=== PATIENT | female | born 1940 | race Caucasian/White ===

== ENCOUNTER 2020-08-16 11:21 | Outpatient (REF) | payer MEDICARE, OTHER, SELFPAY ==
--- NOTE | ~2020-08-16 | XR_ITS ---
EXAMINATION: XR CHEST CLINICAL INFORMATION: Cough COMPARISON: None TECHNIQUE: PA and lateral views of the chest was obtained. FINDINGS: Mild diffuse interstitial prominence which appears chronic. No focal consolidation, pulmonary edema, or pleural effusion. Normal cardiomediastinal silhouette. XR/XR chest 1V IMPRESSION: Probable mild chronic interstitial lung disease. No acute cardiopulmonary findings.
[2020-08-16 14:11] LABS: Glucose Urine UA NEG (NEG); Leukocyte Esterase Urine NEG (NEG); Nitrite Urine NEG (NEG); Specific Gravity - Urine 1.015 (1.005-1.025); Urine Blood NEG (NEG); Urine Ketones NEG (NEG); Urine Protein NEG (NEG-TRACE)
[2020-08-16 14:26] LABS: Appearance Urine CLEAR; Color Urine YELLOW
[2020-08-16 14:32] LABS: Hematocrit 43.6 % (37-47); Mean Corpuscular HGB Conc 32.1 g/dl (31.0-35.0); Mean Corpuscular Hemoglobin 30.6 pg (27.0-33.0); Mean Corpuscular Volume 95.2 fL (80-98); Mean Platelet Volume 11.7 fL (9.4-12.3); Platelet Count 239 X10*3/uL (160-400); Red Blood Count 4.58 X10*6/uL (4.20-5.50); Red Cell Distribution Width 13.2 % (11.0-16.0)
[2020-08-16 14:39] LABS: Estimated Average Glucose 134 mg/dL; Hemoglobin A1c % 6.3 %
[2020-08-16 14:50] LABS: Alanine Aminotransferase 13 U/L (0-31); Albumin Level 4.2 g/dL (3.5-5.0); Alkaline Phosphatase 66 U/L (39-117); Anion Gap 15 (12-20); Aspartate Amino Transferase 17 U/L (5-31); Bilirubin Total 0.6 mg/dL (0.0-1.0); Blood Urea Nitrogen 25 mg/dL (9-16); Calcium 9.8 mg/dL (8.4-10.2); Carbon Dioxide 26 mmol/L (22-29); Chloride 106 mmol/L (96-108); Estimated Glomerular Filt Rate > 60; Glucose Random 111 mg/dL (60-115); Potassium 4.9 mmol/L (3.3-5.1); Sodium 142 mmol/L (135-145); Total Protein 7.5 g/dL (6.5-8.0)
== END 2020-08-16 11:22 | disposition home or self-care (01) ==
LOC: HO.HMGCX 11:21
PROVIDERS: PCP Internal Medicine; Visit Provider Internal Medicine
DX: R10.11 Right upper quadrant pain (principal); R05 Cough; E11.9 Type 2 diabetes mellitus without complications
CPT/HCPCS: 36415; 71045; 80053; 81003; 83036; 85027

== ENCOUNTER 2020-08-22 08:09 | Outpatient (REF) | payer MEDICARE, OTHER, SELFPAY ==
--- NOTE | ~2020-08-22 | US_ITS ---
EXAMINATION: US ABDOMEN COMPLETE CLINICAL INFORMATION: Right upper quadrant pain. COMPARISON: None. TECHNIQUE: Real-time imaging of the abdominal viscera. Technically difficult study secondary to bowel gas and body habitus. FINDINGS: PANCREAS: Normal. ABDOMINAL AORTA: There is mild atherosclerotic calcification distal abdominal aorta. The aorta is otherwise normal in caliber. INFERIOR VENA CAVA: Visualized portions are normal. LIVER: Liver is normal size The liver contour is normal. There is diffuse hepatic echogenicity. No focal hepatic lesion. There is no intrahepatic biliary duct dilatation seen. GALLBLADDER: The gallbladder is physiologically distended. Multiple impacted mobile gallstones are present. There is an impacted gallstone in the neck of the gallbladder measuring 0.6 x 0.6 x 0.6 cm. There are echogenic calcifications in the wall with gallbladder wall thickness measuring 0.19 cm. No evidence of gallbladder wall thickening or pericholecystic fluid. COMMON BILE DUCT: Normal in caliber measuring 0.3 cm in diameter. RIGHT KIDNEY: There is an anechoic cyst in the upper pole measuring 1.6 x 1.7 x 2.1 cm. In addition, there are multiple peripelvic cysts. No hydronephrosis or renal calculi. The kidney measures 10.7 cm in maximum dimension. LEFT KIDNEY: There is an upper pole cyst measuring 2.0 x 1.1 x 1.4 cm. There are multiple peripelvic cysts seen as well. No hydronephrosis or renal calculi. The kidney measures 10.5 cm in maximum dimension. SPLEEN: Normal. The spleen measures 8.3 cm in maximum dimension. FREE FLUID: None. US/US abdomen complete IMPRESSION: Multiple bilateral peripelvic cysts and cortical cysts, largest in both upper poles as described above. No echogenic stones or hydronephrosis. Cholelithiasis without wall thickening. There are echogenic calcifications in the gallbladder wall. Hepatic steatosis without focal lesion.
== END 2020-08-22 08:10 | disposition home or self-care (01) ==
LOC: HO.HMGCX 08:09
PROVIDERS: Visit Provider Internal Medicine
DX: R10.11 Right upper quadrant pain (principal); E11.9 Type 2 diabetes mellitus without complications
CPT/HCPCS: 76700

== ENCOUNTER 2021-05-16 15:18 | Outpatient (REF) | payer MEDICARE, OTHER, SELFPAY ==
--- NOTE | ~2021-05-16 | US_ITS ---
EXAMINATION: US EXTRACRANIAL CAROTID DUPLEX, BILATERAL CLINICAL INFORMATION: Carotid bruits. COMPARISON: None TECHNIQUE: Real-time ultrasound and Doppler techniques (integrating B-mode 2-D vascular images, Doppler spectral analysis and color-flow Doppler imaging) were utilized to interrogate the extracranial carotid arteries, the vertebral arteries and proximal subclavian arteries bilaterally. The degree of stenosis is determined by criteria similar to NASCET. FINDINGS: Right Side: 1. There is minimal atherosclerotic plaque seen in the bifurcation/proximal ICA region. 2. The common carotid artery PSV proximally is 73 cm/s and distally 86 cm/s. 3. The proximal internal carotid artery velocities are 81 cm/s systolic and 29 cm/s diastolic. 4. The proximal external carotid artery PSV is 108 cm/s. 5. The vertebral artery shows antegrade flow. 6. The subclavian artery waveforms are normal. Left Side: 1. There is moderate atherosclerotic plaque seen in the bifurcation/proximal ICA region. 2. The common carotid artery PSV proximally is 84 cm/s and distally 81 cm/s. 3. The proximal internal carotid artery velocities are 129 cm/s systolic and 36 cm/s diastolic. 4. The proximal external carotid artery PSV is 133 cm/s. 5. The vertebral artery shows antegrade flow. 6. The subclavian artery waveforms are normal. US/US carotid duplex BI IMPRESSION: 1. RIGHT: Minimal, non-hemodynamically significant stenosis of the proximal right internal carotid artery corresponding to a 0-49% stenosis by velocity criteria. 2. LEFT: Moderate, hemodynamically significant stenosis of the proximal left internal carotid artery corresponding to a 50-79% stenosis by velocity criteria.
== END 2021-05-16 15:19 | disposition home or self-care (01) ==
LOC: HO.HMGCX 15:18
PROVIDERS: PCP Internal Medicine; Visit Provider Internal Medicine
DX: I77.9 Disorder of arteries and arterioles, unspecified (principal); R09.89 Other specified symptoms and signs involving the circulatory and respiratory systems
CPT/HCPCS: 93880

== ENCOUNTER 2021-10-27 10:17 | Outpatient (REF) | payer MEDICARE, OTHER, SELFPAY ==
[2021-10-27 11:38] LABS: MANUAL DIFF FLAG NO
[2021-10-27 11:46] LABS: Basophils Absolute Auto 0.1 X10*3/uL (0.0-0.2); Basophils Percent Auto 0.8 % (0-2); Eosinophils Absolute Auto 0.2 X10*3/uL (0.0-0.4); Hematocrit 44.3 % (37.0-47.0); Hemoglobin 14.2 g/dl (12.0-16.0); Imm Gran Abs Auto 0.02 X10*3/uL (0.00-0.03); Imm Gran Pct Auto 0.3 % (0.0-0.4); Lymphocytes Absolute Auto 2.4 X10*3/uL (1.2-4.9); Lymphocytes Percent Auto 30.3 % (20-40); Mean Corpuscular HGB Conc 32.1 g/dl (31.0-35.0); Mean Corpuscular Volume 93.5 fL (80.0-98.0); Mean Platelet Volume 11.1 fL (9.4-12.3); Monocytes Absolute Auto 0.7 X10*3/uL (0.1-1.2); Monocytes Percent Auto 8.1 % (2-11); Neutrophils Absolute Auto 4.7 x10*3/uL (2.0-8.3); Neutrophils Percent Auto 58.5 % (45-73); Platelet Count 206 X10*3/uL (160-400); Red Blood Count 4.74 X10*6/uL (4.20-5.50); Red Cell Distribution Width 13.1 % (11.0-16.0)
[2021-10-27 11:57] LABS: Estimated Average Glucose 134 mg/dL; Hemoglobin A1c % 6.3 %
[2021-10-27 12:14] LABS: Creatinine Urine 49.02 mg/dL; Microalbum/Creatinine Ratio Ur 26.5 ug/mg cr
[2021-10-27 12:15] LABS: Alanine Aminotransferase 15 U/L (0-31); Albumin Level 4.2 g/dL (3.5-5.0); Alkaline Phosphatase 61 U/L (39-117); Anion Gap 15 (12-20); Aspartate Amino Transferase 18 U/L (5-31); Bilirubin Total 0.6 mg/dL (0.0-1.0); Blood Urea Nitrogen 26 mg/dL (9-16); Calcium 9.5 mg/dL (8.4-10.2); Carbon Dioxide 27 mmol/L (22-29); Chloride 105 mmol/L (96-108); Cholesterol 198 mg/dL; Estimated Glomerular Filt Rate > 60; Glucose Fasting 120 mg/dL (60-99); HDL Cholesterol 67 mg/dL; LDL Cholesterol Calculated 116 mg/dl; Potassium 4.5 mmol/L (3.3-5.1); Sodium 142 mmol/L (135-145); Total Protein 7.5 g/dL (6.5-8.0); Triglycerides 78 mg/dL
== END 2021-10-27 10:18 | disposition home or self-care (01) ==
LOC: HO.HMGCLDS 10:17
PROVIDERS: PCP Internal Medicine; Visit Provider Internal Medicine
DX: E78.5 Hyperlipidemia, unspecified (principal); I77.9 Disorder of arteries and arterioles, unspecified; E11.9 Type 2 diabetes mellitus without complications
CPT/HCPCS: 36415; 80053; 80061; 82043; 83036; 85025

== ENCOUNTER 2022-05-04 13:20 | Outpatient (REF) | payer MEDICARE, OTHER, SELFPAY ==
--- NOTE | ~2022-05-04 | XR_ITS ---
EXAMINATION: XR CHEST CLINICAL INFORMATION: J45.909 - Unspecified asthma, uncomplicated COMPARISON: Chest radiographs 08/16/2020 TECHNIQUE: 2 views of the chest were obtained. FINDINGS: There is mild accentuated interstitial markings similar in distribution and severity to prior study. There is no lobar or segmental airspace consolidation or groundglass opacity. No pleural thickening or effusion. The heart is normal in size. The vascularity is normal. The costophrenic sulci are well-defined. The hilar and mediastinal contours and bony structures are stable. XR/XR chest 2V IMPRESSION: 1. Mild accentuated interstitial markings similar to prior exam 08/16/2020. 2. No acute intrathoracic disease.
== END 2022-05-04 13:21 | disposition home or self-care (01) ==
LOC: HO.HMGCX 13:20
PROVIDERS: PCP Internal Medicine; Visit Provider Internal Medicine
DX: J45.909 Unspecified asthma, uncomplicated (principal)
CPT/HCPCS: 71046

== ENCOUNTER 2022-05-06 10:59 | Outpatient (REF) | payer MEDICARE, OTHER, SELFPAY ==
[2022-05-06 14:34] LABS: MANUAL DIFF FLAG NO
[2022-05-06 14:51] LABS: Basophils Absolute Auto 0.1 X10*3/uL (0.0-0.2); Eosinophils Absolute Auto 0.2 X10*3/uL (0.0-0.4); Eosinophils Percent Auto 3.4 % (0-4); Hematocrit 46.3 % (37.0-47.0); Hemoglobin 14.7 g/dl (12.0-16.0); Imm Gran Abs Auto 0.01 X10*3/uL (0.00-0.03); Imm Gran Pct Auto 0.1 % (0.0-0.4); Lymphocytes Absolute Auto 2.3 X10*3/uL (1.2-4.9); Lymphocytes Percent Auto 34.3 % (20-40); Mean Corpuscular HGB Conc 31.7 g/dl (31.0-35.0); Mean Corpuscular Hemoglobin 30.8 pg (27.0-33.0); Mean Corpuscular Volume 96.9 fL (80.0-98.0); Mean Platelet Volume 11.8 fL (9.4-12.3); Monocytes Absolute Auto 0.6 X10*3/uL (0.1-1.2); Neutrophils Absolute Auto 3.5 x10*3/uL (2.0-8.3); Neutrophils Percent Auto 52.2 % (45-73); Platelet Count 228 X10*3/uL (160-400); Red Blood Count 4.78 X10*6/uL (4.20-5.50); Red Cell Distribution Width 12.9 % (11.0-16.0); White Blood Count 6.8 X10*3/uL (4.8-10.8)
[2022-05-06 15:06] LABS: Alanine Aminotransferase 21 U/L (0-31); Albumin Level 4.1 g/dL (3.5-5.0); Alkaline Phosphatase 66 U/L (39-117); Anion Gap 13 (12-20); Aspartate Amino Transferase 19 U/L (5-31); Bilirubin Total 0.7 mg/dL (0.0-1.0); Blood Urea Nitrogen 31 mg/dL (9-16); Calcium 9.5 mg/dL (8.4-10.2); Carbon Dioxide 30 mmol/L (22-29); Chloride 104 mmol/L (96-108); Cholesterol 218 mg/dL; Estimated Glomerular Filt Rate > 60; Glucose Fasting 118 mg/dL (60-99); HDL Cholesterol 67 mg/dL; LDL Cholesterol Calculated 134 mg/dl; Potassium 4.4 mmol/L (3.3-5.1); Sodium 143 mmol/L (135-145); Total Protein 7.4 g/dL (6.5-8.0); Triglycerides 86 mg/dL
[2022-05-06 15:25] LABS: Creatinine Urine 97.32 mg/dL; Microalbum/Creatinine Ratio Ur 46.2 ug/mg cr
[2022-05-06 15:31] LABS: Estimated Average Glucose 134 mg/dL; Hemoglobin A1c % 6.3 %
== END 2022-05-06 11:00 | disposition home or self-care (01) ==
LOC: HO.WFDLDS 10:59
PROVIDERS: Visit Provider Internal Medicine
DX: E11.9 Type 2 diabetes mellitus without complications (principal); J45.909 Unspecified asthma, uncomplicated; E78.5 Hyperlipidemia, unspecified
CPT/HCPCS: 36415; 80053; 80061; 82043; 83036; 85025

== ENCOUNTER 2022-11-25 13:57 | Outpatient (AMB) | payer MEDICARE, OTHER, SELFPAY ==
[2022-11-25 14:06] VITALS: BP 136/82; PULSE 89; O2SAT 96; BMI 31.2
--- NOTE | 2022-11-25 14:06 | MHC.PC.OV ---
Vital Signs 11/25/22 14:06 Height 5 ft 3 in Weight 176 lb BMI 31.2 BP 136/82 Blood Pressure Location Lt brachial Position Sitting Pulse 89 Pulse Source Pulse Oximeter Pulse Oximetry (%) 96 Oxygen Delivery Method Room Air Intake Visit Reasons: asthma Intake Note: Pt is here today for a follow up visit. Allergies No Known Allergies Allergy (Verified 11/25/22 14:08) Medication List - Last Reconciled 11/25/22 by Jaylyn Florentino MD albuterol sulfate 90 mcg/actuation 2 puffs inhalation Q6H PRN ezetimibe 10 mg PO DAILY fluticasone furoate-vilanterol 100-25 mcg/dose (Breo Ellipta) 1 inh inhalation DAILY omeprazole 20 mg PO DAILY rosuvastatin 10 mg PO BEDTIME Tobacco use date assessed: 11/25/22 Fall risk assessment: 1 Fall in past year Last assessed Fall Risk: 11/25/22 Dental Screening Dental Screen Date: 11/25/22 Did you have a dental visit in the last 12 months?: Yes Did you have a dental problem in the last 6 months where you did not have access to dental care?: No Was dental information given to patient?: Patient has dentist HPI asthma HPI Details Patient presents for the follow-up of hyperlipidemia diet controlled hyperglycemia. She follows up with inspector of weights and measures from [facility] who added Zetia to her medications 2 weeks ago. She has not had a blood work done since May. Patient has not been physically active. She denies any recurrent bronchitis shortness of breath or wheezing and has not been using inhalers PFSH Medical History (Updated 11/25/22 @ 14:56 by Jaylyn Florentino MD) Hyperlipidemia Carotid arterial disease Cholelithiasis Cough RUQ abdominal pain Urinary incontinence Type 2 diabetes mellitus Surgical History S/P ILIR-BSO History of knee replacement Family History (Updated 11/25/22 @ 14:11 by GEO Barrera) Father Diabetes Mother CHF (congestive heart failure) Maternal Grandfather Colon cancer Social History Housing: House Alcohol intake: current Alcohol intake frequency: holidays/special occasions only Patient Tobacco Use Status: Never used Tobacco e-Cigarette/Vaping Use: Never Used service: No Current occupational status: retired Cognitive needs: No Hearing needs: No Vision needs: Yes Questionnaire Thrive Questionnaire Date Thrive assessed: 05/04/22 AUDIT C Alcohol Use Questionnaire (AUDIT-C) 1. How often do you have a drink containing alcohol?: Never 3. How often do you have six or more drinks on one occasion?: Never Total Score: 0 CASI-7 AMB Questionnaire CASI-7 Date CASI - 7 assessed: 05/04/22 Source: Developed by Drs. Ace Dobbs, Fatou Fernandez, Mejia Winter and colleagues, with an educational astrid from [employer]. Review of Systems Const All systems reviewed & are unremarkable except as noted in HPI and below Reports no additional complaints Eyes Reports no additional complaints ENT Reports no additional complaints Card Reports no additional complaints Resp Reports no additional complaints GI Reports no additional complaints Reports no additional complaints Physical exam (Primary Care) Vital Signs: Last Vital Signs Pulse 89 11/25/22 14:06 BP 136/82 11/25/22 14:06 Pulse Ox 96 11/25/22 14:06 Oxygen Delivery Method Room Air 11/25/22 14:06 BMI result Body Mass Index 31.2 Tobacco/Smoking Status: Tobacco use Status Tobacco use date assessed 11/25/22 11/25/22 14:12 Patient Tobacco Use Status Never used Tobacco 11/25/22 14:12 e-Cigarette/Vaping Use Never Used 11/25/22 14:12 Thrive Assessment: Date of Thrive Assessment Date Thrive assessed 05/04/22 11/25/22 14:12 Const General: no acute distress HENMT Face and sinus: Yes normal facial exam Eyes General: appearance normal, both eyes and all related structures Neck Neck: Yes supple Resp Effort & Inspection: normal respiratory effort Auscultation: clear to auscultation bilaterally Cardio Rhythm: regular rhythm Heart sounds: S1 normal heart sound present and S2 normal heart sound present GI Inspection: Yes normal to inspection Palpation (GI): Soft to palpation Percussion: Yes normal to percussion Auscultation: normal bowel sounds Assessment and Plan Assessment & Plan (1) Hyperlipidemia: Code(s): E78.5 - Hyperlipidemia, unspecified Plan: Patient was advised to continue current medications and have a fasting blood work in 1 month. She will follow-up in 5 weeks to discuss the results (2) Type 2 diabetes mellitus: Comment: diet controlled A1C 6.3 08/2020 Code(s): E11.9 - Type 2 diabetes mellitus without complications Plan: Continue ADA diet, increase physical activity weight loss discussed with the patient, check A1c in 1 month (3) Bilateral carotid bruits: Code(s): R09.89 - Other specified symptoms and signs involving the circulatory and respiratory systems (4) Carotid arterial disease: Comment: Doppler 06/03 L moderate stenosis, R minimal stenosis, started statin Code(s): I77.9 - Disorder of arteries and arterioles, unspecified Plan: Patient is due for a repeat carotid ultrasound, to be discussed during her next visit Orders: Orders Comprehensive [place]. Panel Fast 1 Month E11.9 - Type 2 diabetes mellitus without complications, E78.5 - Hyperlipidemia, unspecified, R09.89 - Other specified symptoms and signs involving the circulatory and respiratory systems TSH reflex Free T4 1 Month E11.9 - Type 2 diabetes mellitus without complications, E78.5 - Hyperlipidemia, unspecified, R09.89 - Other specified symptoms and signs involving the circulatory and respiratory systems Microalbumin, Random (w Creat) 1 Month E11.9 - Type 2 diabetes mellitus without complications, E78.5 - Hyperlipidemia, unspecified, R09.89 - Other specified symptoms and signs involving the circulatory and respiratory systems Complete Blood Count Auto Diff 1 Month E11.9 - Type 2 diabetes mellitus without complications, E78.5 - Hyperlipidemia, unspecified, R09.89 - Other specified symptoms and signs involving the circulatory and respiratory systems Lipid Panel 1 Month E11.9 - Type 2 diabetes mellitus without complications, E78.5 - Hyperlipidemia, unspecified, R09.89 - Other specified symptoms and signs involving the circulatory and respiratory systems Hemoglobin A1c 1 Month E11.9 - Type 2 diabetes mellitus without complications, E78.5 - Hyperlipidemia, unspecified, R09.89 - Other specified symptoms and signs involving the circulatory and respiratory systems Medications: Discontinued fluticasone furoate-vilanterol 100-25 mcg/dose (Breo Ellipta) Discontinued Reason: Doctor's Order 1 inh inhalation DAILY 60 ea 0RF Coding Level of Care Code Est Pt Level 4 (02394) Diagnoses Hyperlipidemia E78.5 Type 2 diabetes mellitus E11.9 Bilateral carotid bruits R09.89 Carotid arterial disease I77.9
== END 2022-11-25 14:57 | disposition home or self-care (01) ==
PROVIDERS: PCP Internal Medicine; Visit Provider Internal Medicine
DX: E78.5 Hyperlipidemia, unspecified (principal); E11.9 Type 2 diabetes mellitus without complications; R09.89 Other specified symptoms and signs involving the circulatory and respiratory systems; I77.9 Disorder of arteries and arterioles, unspecified
CPT/HCPCS: 99214

== ENCOUNTER 2022-12-22 10:22 | Outpatient (REF) | payer MEDICARE, OTHER, SELFPAY | END 2022-12-22 10:23 | disposition home or self-care (01) | LOC: HO.WFDLDS 10:22 | PROVIDERS: Visit Provider Internal Medicine | DX: R09.89 Other specified symptoms and signs involving the circulatory and respiratory systems (principal); E11.9 Type 2 diabetes mellitus without complications; E78.5 Hyperlipidemia, unspecified | CPT/HCPCS: 36415; 80053; 80061; 82043; 82570; 83036; 84443; 85025 ==

== ENCOUNTER 2022-12-30 10:48 | Outpatient (AMB) | payer MEDICARE, OTHER, SELFPAY ==
--- NOTE | 2022-12-30 10:54 | A.OFFPC_ITS ---
Vital Signs 12/30/22 10:55 Height 5 ft 3 in Weight 176 lb BMI 31.2 BP 130/82 Blood Pressure Location Lt brachial Position Sitting Pulse 85 Pulse Source Pulse Oximeter Pulse Oximetry (%) 98 Oxygen Delivery Method Room Air Intake Visit Reasons: 5 week fu Intake Note: Pt is here today for 5 weeks follow up visit. Allergies No Known Allergies Allergy (Verified 12/30/22 10:59) Medication List - Last Reconciled 12/30/22 by Jaylyn Florentino MD albuterol sulfate 90 mcg/actuation 2 puffs inhalation Q6H PRN ezetimibe 10 mg PO DAILY omeprazole 20 mg PO DAILY rosuvastatin 10 mg PO BEDTIME Tobacco use date assessed: 11/25/22 HPI 5 week fu HPI Details Pt presnts for f/u hyperlipid and hyperglycemia, stable on meds. PFSH Medical History Hyperlipidemia Carotid arterial disease Cholelithiasis Cough RUQ abdominal pain Urinary incontinence Type 2 diabetes mellitus Surgical History S/P ILIR-BSO History of knee replacement Family History Father Diabetes Mother CHF (congestive heart failure) Maternal Grandfather Colon cancer Social History Housing: House Alcohol intake: current Alcohol intake frequency: holidays/special occasions only Patient Tobacco Use Status: Never used Tobacco e-Cigarette/Vaping Use: Never Used service: No Current occupational status: retired Cognitive needs: No Hearing needs: No Vision needs: Yes Questionnaire Thrive Questionnaire Date Thrive assessed: 05/04/22 CASI-7 AMB Questionnaire CASI-7 Date CASI - 7 assessed: 05/04/22 Source: Developed by Drs. Ace Dobbs, Fatou Fernandez, Mejia Winter and colleagues, with an educational astrid from [employer]. Review of Systems Const All systems reviewed & are unremarkable except as noted in HPI and below Reports no additional complaints Eyes Reports no additional complaints ENT Reports no additional complaints Card Reports no additional complaints Resp Reports no additional complaints GI Reports no additional complaints Physical exam (Primary Care) Vital Signs: Last Vital Signs Pulse 85 12/30/22 10:55 BP 130/82 12/30/22 10:55 Pulse Ox 98 12/30/22 10:55 Oxygen Delivery Method Room Air 12/30/22 10:55 BMI result Body Mass Index 31.2 Tobacco/Smoking Status: Tobacco use Status Tobacco use date assessed 11/25/22 12/30/22 10:55 Patient Tobacco Use Status Never used Tobacco 12/30/22 10:55 e-Cigarette/Vaping Use Never Used 12/30/22 10:55 Thrive Assessment: Date of Thrive Assessment Date Thrive assessed 05/04/22 12/30/22 10:55 Const General: no acute distress HENMT Head: Yes normal to inspection Resp Effort & Inspection: normal respiratory effort Auscultation: clear to auscultation bilaterally Cardio Rhythm: regular rhythm Heart sounds: S1 normal heart sound present and S2 normal heart sound present Assessment and Plan Assessment & Plan (1) Type 2 diabetes mellitus: Comment: diet controlled A1C 6.3 08/2021 Code(s): E11.9 - Type 2 diabetes mellitus without complications Plan: A1c is down to 6.1, continue ADA diet increase physical activity weight loss discussed with the patient. 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 Panel Fast 6 Months E11.9 - Type 2 diabetes mellitus without complications, E78.5 - Hyperlipidemia, unspecified, R03.0 - Elevated blood- pressure reading, without diagnosis of hypertension Lipid Panel 6 Months E11.9 - Type 2 diabetes mellitus without complications, E78.5 - Hyperlipidemia, unspecified, R03.0 - Elevated blood-pressure reading, without diagnosis of hypertension Hemoglobin A1c 6 Months E11.9 - Type 2 diabetes mellitus without complications, E78.5 - Hyperlipidemia, unspecified, R03.0 - Elevated blood-pressure reading, without diagnosis of hypertension Coding Level of Care Code Est Pt Level 3 (11825) Diagnoses Type 2 diabetes mellitus E11.9 Hyperlipidemia E78.5 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
[2022-12-30 10:55] VITALS: BP 130/82; PULSE 85; O2SAT 98; BMI 31.2
== END 2022-12-30 11:40 | disposition home or self-care (01) ==
PROVIDERS: PCP Internal Medicine; Visit Provider Internal Medicine
DX: E11.9 Type 2 diabetes mellitus without complications (principal); E78.5 Hyperlipidemia, unspecified; R03.0 Elevated blood-pressure reading, without diagnosis of hypertension
CPT/HCPCS: 99213

== ENCOUNTER 2023-06-24 10:55 | Outpatient (REF) | payer MEDICARE, OTHER, SELFPAY ==
[2023-06-24 15:05] LABS: Alanine Aminotransferase 21 U/L (0-31); Albumin Level 3.8 g/dL (3.5-5.0); Alkaline Phosphatase 56 U/L (39-117); Anion Gap 10 (12-20); Aspartate Amino Transferase 19 U/L (5-31); Bilirubin Total 0.5 mg/dL (0.0-1.0); Blood Urea Nitrogen 29 mg/dL (9-16); Calcium 9.3 mg/dL (8.4-10.2); Carbon Dioxide 27 mmol/L (22-29); Chloride 108 mmol/L (96-108); Cholesterol 148 mg/dL (<200); Estimated Glomerular Filt Rate > 60; Glucose Fasting 115 mg/dL (60-99); HDL Cholesterol 66 mg/dL (>40); LDL Cholesterol Calculated 67 mg/dL (<100); Potassium 4.3 mmol/L (3.3-5.1); Sodium 141 mmol/L (135-145); Total Protein 7.1 g/dL (6.5-8.0); Triglycerides 78 mg/dL (<150)
[2023-06-24 15:11] LABS: Estimated Average Glucose 146 mg/dL; Hemoglobin A1c % 6.7 % (<6.0)
== END 2023-06-24 10:56 | disposition home or self-care (01) ==
LOC: HO.WFDLDS 10:55
PROVIDERS: Visit Provider Internal Medicine
DX: E11.9 Type 2 diabetes mellitus without complications (principal); E78.5 Hyperlipidemia, unspecified; R03.0 Elevated blood-pressure reading, without diagnosis of hypertension
CPT/HCPCS: 36415; 80053; 80061; 83036

== ENCOUNTER 2023-06-29 10:19 | Outpatient (AMB) | payer MEDICARE, OTHER, SELFPAY ==
[2023-06-29 10:27] VITALS: BP 134/80; PULSE 76; O2SAT 98; BMI 31.4
--- NOTE | 2023-06-29 10:27 | A.OFFPC_ITS ---
Vital Signs 06/29/23 10:27 Height 5 ft 3 in Weight 177 lb BMI 31.4 BP 134/80 Blood Pressure Location Lt brachial Position Sitting Pulse 76 Pulse Source Pulse Oximeter Pulse Oximetry (%) 98 Oxygen Delivery Method Room Air Intake Visit Reasons: Annual PE/Overdue Intake Note: Pt is here today for PE. Allergies No Known Allergies Allergy (Verified 06/29/23 10:33) Medication List - Last Reconciled 06/29/23 by Jaylyn Florentino MD albuterol sulfate 90 mcg/actuation 2 puffs inhalation Q6H PRN ezetimibe 10 mg PO DAILY omeprazole 20 mg PO DAILY rosuvastatin 10 mg PO BEDTIME Tobacco use date assessed: 06/29/23 Fall risk assessment: No Falls in past year Last assessed Fall Risk: 06/29/23 Dental Screening Dental Screen Date: 06/29/23 Did you have a dental visit in the last 12 months?: Yes Did you have a dental problem in the last 6 months where you did not have access to dental care?: No Was dental information given to patient?: Patient has dentist HPI Annual PE/Overdue HPI Details Pt presents for PE. [facility] Medical History (Updated 06/29/23 @ 11:56 by Jaylyn Florentino MD) Hyperlipidemia Carotid arterial disease Cholelithiasis Cough RUQ abdominal pain Urinary incontinence Type 2 diabetes mellitus Surgical History S/P ILIR-BSO History of knee replacement Family History Father Diabetes Mother CHF (congestive heart failure) Maternal Grandfather Colon cancer Social History Housing: House Alcohol intake: current Alcohol intake frequency: holidays/special occasions only Patient Tobacco Use Status: Never used Tobacco e-Cigarette/Vaping Use: Never Used service: No Current occupational status: retired Cognitive needs: No Hearing needs: No Vision needs: Yes Questionnaire PHQ-9 Over the last 2 weeks, how often have you been bothered by any of the following problems? 1. Little interest or pleasure in doing things: not at all 2. Feeling down, depressed, or hopeless: not at all 3. Trouble falling or staying asleep, or sleeping too much: not at all 4. Feeling tired or having little energy: not at all 5. Poor appetite or overeating: not at all 6. Feeling bad about yourself - or that you are a failure or have let yourself or your family down: not at all 7. Trouble concentrating on things, such as reading the newspaper or watching television: not at all 8. Moving or speaking so slowly that other people could have noticed. Or the opposite - being so fidgety or restless that you have been moving around a lot more than usual: not at all 9. Thoughts that you would be better off or of hurting yourself in some way: not at all Total score: 0 Depression Screening Interpretation: Negative Depression Screening Done: Yes Source: Developed by Drs. Ace Dobbs, Fatou Fernandez, Mejia Winter and colleagues, with an educational astrid from [employer]. Thrive Questionnaire Date Thrive assessed: 06/29/23 I am a: Patient What is your living situation today?: I have a steady place to live Within the past 12 months, did the food you bought not last and you didn't have the money to get more?: Never true Within the past 12 months, did you worry whether your food would run out before you got money to buy more?: Never true Do you have trouble paying for medicines?: No Do you have trouble getting transportation to medical appointments?: No Do you have trouble paying your heating and electricity bill?: No Do you have trouble taking care of your child, family member or friend?: No Do you have trouble with day-to-day activities such as bathing, preparing meals, shopping, managing finances, etc.?: No Are you currently unemployed and looking for a job?: No Are you interested in more education?: No Please select the resources that you would like help with: None THRIVE Score: 0 AUDIT C Alcohol Use Questionnaire (AUDIT-C) 1. How often do you have a drink containing alcohol?: Monthly or less 2. How many drinks containing alcohol do you have on a typical day when you are drinking?: 1 or 2 3. How often do you have six or more drinks on one occasion?: Never Total Score: 1 CASI-7 AMB Questionnaire CASI-7 Date CASI - 7 assessed: 06/29/23 Feeling nervous, anxious, or on edge: 0 = Not at all Not being able to stop or control worryin = Not at all Worrying too much about different things: 0 = Not at all Trouble relaxin = Not at all Being so restless that it is hard to sit still: 0 = Not at all Becoming easily annoyed or irritable: 0 = Not at all Feeling afraid as if something awful might happen: 0 = Not at all Total CASI-7 score (0-4 normal; 5-9 mild; 10-14 moderate; 15-21 severe): 0 Source: Developed by Drs. Ace Dobbs, Fatou Fernandez, Mejia Winter and colleagues, with an educational astrid from [employer]. Review of Systems Const All systems reviewed & are unremarkable except as noted in HPI and below Reports no additional complaints Eyes Reports no additional complaints ENT Reports no additional complaints Card Reports no additional complaints Resp Reports no additional complaints GI Reports no additional complaints Reports no additional complaints Musc Reports no additional complaints Physical exam (Primary Care) Vital Signs: Last Vital Signs Pulse 76 06/29/23 10:27 BP 134/80 06/29/23 10:27 Pulse Ox 98 06/29/23 10:27 Oxygen Delivery Method Room Air 06/29/23 10:27 BMI result Body Mass Index 31.4 Tobacco/Smoking Status: Tobacco use Status Tobacco use date assessed 06/29/23 06/29/23 10:36 Patient Tobacco Use Status Never used Tobacco 06/29/23 10:36 e-Cigarette/Vaping Use Never Used 06/29/23 10:28 PHQ-9: PHQ-9 Score PHQ-9: Total score 0 06/29/23 10:36 Depression Screening Interpretation: Negative Thrive Assessment: Date of Thrive Assessment Date Thrive assessed 06/29/23 06/29/23 10:36 Const General: no acute distress HENMT Head: Yes normal to inspection Ears: hearing grossly normal bilaterally Face and sinus: Yes normal facial exam Throat: Yes posterior oropharynx normal Eyes General: appearance normal, both eyes and all related structures Neck Neck: Yes no lymphadenopathy and Yes supple Resp Effort & Inspection: normal respiratory effort Auscultation: clear to auscultation bilaterally Cardio Rhythm: regular rhythm Heart sounds: S1 normal heart sound present and S2 normal heart sound present GI Inspection: Yes normal to inspection Palpation (GI): Soft to palpation Percussion: Yes normal to percussion Auscultation: normal bowel sounds Assessment and Plan Assessment & Plan (1) Type 2 diabetes mellitus: Comment: diet controlled A1C 6.3 08/2021, A1C 6.7 07/06 Code(s): E11.9 - Type 2 diabetes mellitus without complications Plan: A1c is 6.7, ADA diet increase physical activity weight loss discussed with the patient Goals: Improve glycemic control Barriers: None (2) Carotid arterial disease: Comment: Doppler 06/03 L moderate stenosis, R minimal stenosis, started statin Code(s): I77.9 - Disorder of arteries and arterioles, unspecified Plan: Obtain repeat Doppler to evaluate for left carotid stenosis (3) Hyperlipidemia: Code(s): E78.5 - Hyperlipidemia, unspecified Plan: Continue current medications, follow-up in 5 months with a fasting labs before (4) Annual physical exam: Code(s): Z00.00 - Encounter for general adult medical examination without abnormal findings Plan: Well-balanced diet regular physical activity weight loss discussed with the patient return in 5 months Orders: Orders Hemoglobin A1c 5 Months E11.9 - Type 2 diabetes mellitus without complications, E78.5 - Hyperlipidemia, unspecified, I77.9 - Disorder of arteries and arterioles, unspecified Microalbumin, Random (w Creat) 5 Months E11.9 - Type 2 diabetes mellitus without complications, E78.5 - Hyperlipidemia, unspecified, I77.9 - Disorder of arteries and arterioles, unspecified Vitamin D 25-OH Total 5 Months E11.9 - Type 2 diabetes mellitus without complications, E78.5 - Hyperlipidemia, unspecified, I77.9 - Disorder of arteries and arterioles, unspecified US carotid duplex BI Today I77.9 - Disorder of arteries and arterioles, unspecified Comprehensive [place]. Panel Fast 5 Months E11.9 - Type 2 diabetes mellitus without complications, E78.5 - Hyperlipidemia, unspecified, I77.9 - Disorder of arteries and arterioles, unspecified Lipid Panel 5 Months E11.9 - Type 2 diabetes mellitus without complications, E78.5 - Hyperlipidemia, unspecified, I77.9 - Disorder of arteries and arterioles, unspecified Complete Blood Count Auto Diff 5 Months E11.9 - Type 2 diabetes mellitus without complications, E78.5 - Hyperlipidemia, unspecified, I77.9 - Disorder of arteries and arterioles, unspecified Patient Instructions: Goals: IMPROVE DM control, ADA diet, increase exercise, weight loss Barriers:none Coding Level of Care Code Est Pt Prev Care >65y(73817) Diagnoses Type 2 diabetes mellitus E11.9 Carotid arterial disease I77.9 Hyperlipidemia E78.5 Annual physical exam Z00.00
== END 2023-06-29 11:41 | disposition home or self-care (01) ==
PROVIDERS: PCP Internal Medicine; Visit Provider Internal Medicine
DX: Z00.00 Encounter for general adult medical examination without abnormal findings (principal); E11.69 Type 2 diabetes mellitus with other specified complication; I77.9 Disorder of arteries and arterioles, unspecified; E78.5 Hyperlipidemia, unspecified
CPT/HCPCS: 99397

== ENCOUNTER 2023-07-19 10:04 | Outpatient (REF) | payer MEDICARE, OTHER, SELFPAY ==
--- NOTE | ~2023-07-19 | US_ITS ---
EXAMINATION: US EXTRACRANIAL CAROTID DUPLEX, BILATERAL CLINICAL INFORMATION: f/u L carotid stenosis COMPARISON: Carotid Doppler 05/16/2021 TECHNIQUE: Real-time ultrasound and Doppler techniques (integrating B-mode 2-D vascular images, Doppler spectral analysis and color-flow Doppler imaging) were utilized to interrogate the extracranial carotid arteries, the vertebral arteries and proximal subclavian arteries bilaterally. The degree of stenosis is determined by criteria similar to NASCET. FINDINGS: Right Side: 1. There is mild atherosclerotic plaque seen in the bifurcation/proximal ICA region. 2. The common carotid artery PSV proximally is 85 cm/s and distally 87 cm/s. 3. The proximal internal carotid artery velocities are 76 cm/s systolic and 19 cm/s diastolic. 4. The proximal external carotid artery PSV is 182 cm/s. 5. The vertebral artery shows antegrade flow. 6. The subclavian artery waveforms are normal. Left Side: 1. There is mild atherosclerotic plaque seen in the bifurcation/proximal ICA region. 2. The common carotid artery PSV proximally is 63 cm/s and distally 82 cm/s. 3. The proximal internal carotid artery velocities are 151 cm/s systolic and 41 cm/s diastolic. 4. The proximal external carotid artery PSV is 155 cm/s. 5. The vertebral artery shows antegrade flow. 6. The subclavian artery waveforms are normal. US/US carotid duplex BI IMPRESSION: 1. RIGHT: Minimal, non-hemodynamically significant stenosis of the proximal right internal carotid artery corresponding to a 0-49% stenosis by velocity criteria. 2. LEFT: Moderate, hemodynamically significant stenosis of the proximal left internal carotid artery corresponding to a 50-79% stenosis by velocity criteria. 3. There is no change in the category severity of disease when compared to the previous study dated 05/16/2021.
== END 2023-07-19 10:05 | disposition home or self-care (01) ==
LOC: HO.HMGCX 10:04
PROVIDERS: PCP Internal Medicine; Visit Provider Internal Medicine
DX: I77.9 Disorder of arteries and arterioles, unspecified (principal); I65.23 Occlusion and stenosis of bilateral carotid arteries
CPT/HCPCS: 93880

== ENCOUNTER 2023-11-29 11:02 | Outpatient (AMB) | payer MEDICARE, OTHER, SELFPAY ==
[2023-11-29 11:36] VITALS: BP 130/80; PULSE 87; O2SAT 95; BMI 30.8
--- NOTE | 2023-11-29 11:36 | MHC.PC.OV ---
Vital Signs 11/29/23 11:36 Height 5 ft 3 in Weight 174 lb BMI 30.8 BP 130/80 Blood Pressure Location Lt brachial Position Sitting Pulse 87 Pulse Source Pulse Oximeter Pulse Oximetry (%) 95 Oxygen Delivery Method Room Air Intake Visit Reasons: 5 month follow up Intake Note: Pt is here today for 5 months follow up visit. Allergies No Known Allergies Allergy (Verified 11/29/23 11:52) Medication List - Last Reconciled 11/29/23 by Jaylyn Florentino MD albuterol sulfate 90 mcg/actuation 2 puffs inhalation Q6H PRN ezetimibe 10 mg PO DAILY omeprazole 20 mg PO DAILY rosuvastatin 10 mg PO BEDTIME Tobacco use date assessed: 11/29/23 Fall risk assessment: No Falls in past year Last assessed Fall Risk: 11/29/23 Dental Screening Dental Screen Date: 11/29/23 Did you have a dental visit in the last 12 months?: Yes Did you have a dental problem in the last 6 months where you did not have access to dental care?: No Was dental information given to patient?: Patient has dentist HPI 5 month follow up HPI Details Patient presents for the follow-up on hyperlipidemia controlled medications and diet control type 2 diabetes with most recent A1c is 6.7. Patient has been physically active and following ADA diet [facility] Medical History (Updated 11/29/23 @ 12:54 by Jaylyn Florentino MD) Hx of cataract Hyperlipidemia Carotid arterial disease Cholelithiasis Cough RUQ abdominal pain Urinary incontinence Type 2 diabetes mellitus Surgical History S/P ILIR-BSO History of knee replacement Family History Father Diabetes Mother CHF (congestive heart failure) Maternal Grandfather Colon cancer Social History Housing: House Alcohol intake: current Alcohol intake frequency: holidays/special occasions only Patient Tobacco Use Status: Never used Tobacco e-Cigarette/Vaping Use: Never Used service: No Current occupational status: retired Cognitive needs: No Hearing needs: No Vision needs: Yes Questionnaire Thrive Questionnaire Date Thrive assessed: 06/29/23 AUDIT C Alcohol Use Questionnaire (AUDIT-C) 1. How often do you have a drink containing alcohol?: Monthly or less 2. How many drinks containing alcohol do you have on a typical day when you are drinking?: 1 or 2 3. How often do you have six or more drinks on one occasion?: Never Total Score: 1 CASI-7 AMB Questionnaire CASI-7 Date CASI - 7 assessed: 06/29/23 Source: Developed by Drs. Ace Dobbs, Fatou Fernandez, Mejia Winter and colleagues, with an educational astrid from [employer]. Review of Systems Const All systems reviewed & are unremarkable except as noted in HPI and below Card Reports no additional complaints Resp Reports no additional complaints Physical exam (Primary Care) Vital Signs: Last Vital Signs Pulse 87 11/29/23 11:36 BP 130/80 11/29/23 11:36 Pulse Ox 95 11/29/23 11:36 Oxygen Delivery Method Room Air 11/29/23 11:36 BMI result Body Mass Index 30.8 Tobacco/Smoking Status: Tobacco use Status Tobacco use date assessed 11/29/23 11/29/23 11:38 Patient Tobacco Use Status Never used Tobacco 11/29/23 11:38 e-Cigarette/Vaping Use Never Used 11/29/23 11:38 Thrive Assessment: Date of Thrive Assessment Date Thrive assessed 06/29/23 11/29/23 11:38 Const General: no acute distress HENMT Head: Yes normal to inspection Eyes General: appearance normal, both eyes and all related structures Neck Neck: Yes supple Resp Effort & Inspection: normal respiratory effort Auscultation: clear to auscultation bilaterally Cardio Rhythm: regular rhythm Heart sounds: S1 normal heart sound present and S2 normal heart sound present GI Inspection: Yes normal to inspection Palpation (GI): Soft to palpation Percussion: Yes normal to percussion Assessment and Plan Assessment & Plan (1) Annual physical exam: Code(s): Z00.00 - Encounter for general adult medical examination without abnormal findings (2) Hyperlipidemia: Comment: Follows up with a public information relations manager in [place] Code(s): E78.5 - Hyperlipidemia, unspecified Plan: Continue current medications obtain a copy of blood work done by public information relations manager at [facility] (3) Type 2 diabetes mellitus: Comment: diet controlled A1C 6.3 08/2021, A1C 6.7 07/06 Code(s): E11.9 - Type 2 diabetes mellitus without complications Plan: Continue ADA diet increase physical activity weight loss discussed with the patient return for physical in 8 months with a fasting labs before Orders: Orders Comprehensive [place]. Panel Fast 8 Months E11.9 - Type 2 diabetes mellitus without complications, E78.5 - Hyperlipidemia, unspecified, Z00.00 - Encounter for general adult medical examination without abnormal findings Hemoglobin A1c 8 Months E11.9 - Type 2 diabetes mellitus without complications, E78.5 - Hyperlipidemia, unspecified, Z00.00 - Encounter for general adult medical examination without abnormal findings Lipid Panel 8 Months E11.9 - Type 2 diabetes mellitus without complications, E78.5 - Hyperlipidemia, unspecified, Z00.00 - Encounter for general adult medical examination without abnormal findings Complete Blood Count Auto Diff 8 Months E11.9 - Type 2 diabetes mellitus without complications, E78.5 - Hyperlipidemia, unspecified, Z00.00 - Encounter for general adult medical examination without abnormal findings Microalbumin, Random (w Creat) 8 Months E11.9 - Type 2 diabetes mellitus without complications, E78.5 - Hyperlipidemia, unspecified, Z00.00 - Encounter for general adult medical examination without abnormal findings Vitamin D 25-OH Total 8 Months E11.9 - Type 2 diabetes mellitus without complications, E78.5 - Hyperlipidemia, unspecified, Z00.00 - Encounter for general adult medical examination without abnormal findings Coding Level of Care Code Est Pt Level 3 (52606) Diagnoses Annual physical exam Z00.00 Hyperlipidemia E78.5 Type 2 diabetes mellitus E11.9
== END 2023-11-29 12:55 | disposition home or self-care (01) ==
PROVIDERS: PCP Internal Medicine; Visit Provider Internal Medicine
DX: Z00.00 Encounter for general adult medical examination without abnormal findings (principal); E78.5 Hyperlipidemia, unspecified; E11.9 Type 2 diabetes mellitus without complications

== ENCOUNTER → 2023-11-29 11:02 | Outpatient (BNVA) | payer MEDICARE, OTHER, SELFPAY | PROVIDERS: PCP Internal Medicine; Visit Provider Internal Medicine | DX: Z00.00 Encounter for general adult medical examination without abnormal findings (principal); E11.9 Type 2 diabetes mellitus without complications; E78.5 Hyperlipidemia, unspecified; Z79.899 Other long term (current) drug therapy | CPT/HCPCS: 99212 ==

== ENCOUNTER 2024-07-12 10:08 | Outpatient (REF) | payer MEDICARE, OTHER, SELFPAY ==
--- OUTSIDE RECORDS SUMMARY | 2024-07-12 11:10 | XMS_ITS | Encounter Summary ---
Author Organization [facility] Address [address] [place] [address] Care Team Providers Care Automatic Maintainer Name Role Phone Jaylyn Florentino MD Primary Care Provider [phone] Lawrence Echols MD Unavailable Lawrence Echols MD Unavailable Reason for Visit * Reason Comments Medication Refill Encounter Details Date Type Department Care Team (Late st Contact Info) Description 08/06/[address] [phone] Lawrence Echols MD [address] [place] [address] Medication Refill Social History Tobacco Use Types Packs/Day Years Used Date Smoking Tobacco: Never Smokeless Tobacco: Never Alcohol Use Standard Drinks/Week Comments Yes 0 (1 standard drink = 0.6 oz pur e alcohol) 3 x yearly 1-2 drinks Comments Unknown Sex and Gender Information Value Date Recorded Sex Assigned at Female 11/04/2022 7:04 AM EDT Legal Sex Female 4:57 PM EDT Gender Identity Female 11/04/2022 7:04 AM EDT Sexual Orientation Heterosexual (straight) 11/04 7:04 AM EDT documented as of this encounter Plan of Treatment Upcoming Encounters Date Type Department Care Team (Late st Contact Info) Description 09/28/2024 10:15 AM EDT Ancillary Procedure [facility] [address] [phone] Lawrence Echols MD [address] [place] [phone] 12/18/2024 10:20 AM EDT Office Visit [facility] [address] [phone] Lawrence Echols MD [address] [place], [place] [phone] documented as of this encounter Visit Diagnoses Diagnosis Mixed hyperlipidemia Insulin resistance Other abnormal glucose documented in this encounter Care Teams Automatic Maintainer Relationship Specialty Start Date End Date Jaylyn Florentino MD [address] [place] [address] PCP - General 12/09/20 Lawrence Echols MD [address] [place] [id number] Cardiovascular Disease 12/09/20 2 Lawrence Echols MD [address] [place] [phone] Primary Lace Finisher Cardiovascular Disease 01/14/22 documented as of this encounter
--- OUTSIDE RECORDS SUMMARY | 2024-07-12 11:10 | XMS_ITS | Clinical Summary ---
Author Organization [facility] Address [address] [place] [address] Care Team Providers Care Landscape Architecture Teacher Name Role Phone Jaylyn Florentino MD Primary Care Provider [phone] Lawrence Echols MD Unavailable Allergies Active Allergy Reactions Criticality Noted Date Comments Brant-Containing Compounds Other (See Comments) 08/02/2018 [place] BAND CAUSED REDNESS, ITCHING, BLEEDING. OTHER METAL JEWELRY NOT A PROBLEM Medications calcium citrate-vitamin D (CITRACAL+D) 315-200 MG-UNIT per tablet Take 1 tablet by mouth 2 (two) times a week. Active Magnesium 400 MG Cap Take 1 capsule by mouth 2 (two) times a week. Active Misc Natural Products (OSTEO BI-FLEX ADV TRIPLE ST PO) Take 2 tablets by mouth daily. Active OMEprazole (PriLOSEC) 20 MG capsule Take 1 capsule (20 mg total) by mouth daily as needed. 1 Active ezetimibe (ZeTIA) 10 MG tabletIndications:M ixed hyperlipidemia,Bibi riosclerotic cardiovascular disease (ASCVD) Take 1 tablet (10 mg total) by mouth daily. 90 tablet 3 4 Active rosuvastatin (CRESTOR) 10 MG tabletIndications:M ixed hyperlipidemia,Insu jarod resistance TAKE 1 TABLET(10 MG) BY MOUTH DAILY 90 tablet 1 4 Active Active Problems Problem Noted Date Diagnosed Date Primary osteoarthritis of left knee 04/02/2021 Primary osteoarthritis of right knee 04/02/2021 Osteoarthritis of right knee 10/18/2018 Degenerative arthritis of left knee 08/29/2018 Abnormal EKG 08/10/2018 Dyspnea on exertion 08/10/2018 Pure hypercholesterolemia 06/14/2015 Right flank pain 01/30/2013 Overview (04/02/2021): Flank Pain Right Pain in the coccyx 10/07/2010 Overview (04/02/2021): Coccydynia Family History Medical History Relation Name Comments Asthma Brother 2 Coronary artery disease Father Stroke Father Arthritis Mother Rheumatoid Early Sister 1 Arthritis Sister 2 Spinal Stenosis Asthma Sister 2 Relation Name Status Comments Brother 2 Unknown Father (Age 81) uknown Mother (Age 89) CHF Sister 1 (Age 4) Leukemia Sister 2 Alive Social History Tobacco Use Types Packs/Day Years [...] Orientation Heterosexual (straight) 11/04 7:04 AM EDT Last Filed Vital Signs Vital Sign Reading Time Taken Comments Blood Pressure 144/80 12/17/2023 10:55 AM EDT Pulse 94 12/17/2023 10:55 AM EDT Temperature - - Respiratory Rate - - Oxygen Saturation 98% 12/17/2023 10:55 AM EDT Inhaled Oxygen Concentration - - Weight 79 kg (174 lb 3.2 oz) 12/17/2023 10:55 AM EDT Height 154.9 cm (5' 1 ) 12/17/2023 10:55 AM EDT Body Mass Index 32.91 12/17/2023 10:55 AM EDT Plan of Treatment Upcoming Encounters Date Type Department Care Team (Late st Contact Info) Description 09/28/2024 10:15 AM EDT Ancillary Procedure [facility] [place] [address] [phone] Lawrence Echols MD [address] [place], [place] [id number] 12/18/2024 10:20 AM EDT Office Visit [facility] [place] [address] [phone] Lawrence Echols MD [address] [place] [phone] Health Maintenance Due Date Last Done Comments DTaP/Tdap/Td Vaccines (1 - Tdap) 1960 Pneumococcal Vaccines 50+ (1 of 1 - PCV) 1991 Zoster (Shingles) Vaccine (1 of 2) 1991 DXA Bone Density (Females,Ag es 65 and older) 2006 RSV Vaccine 60 years and old er and Patients (1 - 1-dose 75+ series) 2016 Influenza Vaccine 10/14/2023 COVID-19 Vaccine ( - 2023-2 5 season) 2023 Hepatitis B Vaccines Aged Out No long er eligible based on patient's age to complete this topic Insurance MEDICARE PART A & B [facility] Care Teams Landscape Architecture Teacher Relationship Specialty Start Date End Date Jaylyn Florentino MD [address] [place] [address] PCP - General 12/09/20 Lawrence Echols MD [address] [place] [address] Primary Grinding Machine Operator Cardiovascular Disease 01/14/22
--- OUTSIDE RECORDS SUMMARY | 2024-07-12 11:10 | XMS_ITS | Clinical Summary ---
Author Organization [facility] it Address [address] [place] [address] Care Team Providers Care Boiler Riveter Name Role Phone Jaylyn Florentino MD Primary Care Provider [phone] Surgical History Surgery Date Site/Laterality Comments HYSTERECTOMY PROCEDURE: HISTORICAL HYSTERECTOMY TOTAL KNEE ARTHROPLASTY PROCEDURE: MT ARTHRP KNE CONDYLE&PLATU MEDIAL&LAT COMPARTMENTS CHOLECYSTECTOMY PROCEDURE: MT LAPAROSCOPY SURG CHOLECYSTECTOMY Family History Medical History Relation Name Comments No Known Problems Father No Known Problems Mother Relation Name Status Comments Father Mother Social History Tobacco Use Types Packs/Day Years Used Date Smoking Tobacco: Never Alcohol Use Standard Drinks/Week Comments Not Currently 0 (1 standard drink = 0.6 oz pur e alcohol) Comments Unknown Sex and Gender Information Value Date Recorded Sex Assigned at Not on file Legal Sex Female 10:41 AM EST Gender Identity Not on file Sexual Orientation Not on file Obstetrics History Last Filed Vital Signs Vital Sign Reading Time Taken Comments Blood Pressure 158/85 06/03/2021 9:05 AM EDT Pulse 73 06/03/2021 9:05 AM EDT Temperature - - Respiratory Rate - - Oxygen Saturation - - Inhaled Oxygen Concentration - - Weight 82.3 kg (181 lb 8 oz) 06/03/2021 9:05 AM EDT Height 157.5 cm (5' 2 ) 06/03/2021 9:05 AM EDT Body Mass Index 33.2 06/03/2021 9:05 AM EDT Plan of Treatment Health Maintenance Due Date Last Done Comments DTaP,Tdap,and Td Vaccines (1 - Tdap) 1960 Pneumococcal Vaccine: 50+ Years (1 of 1 - PCV) 1991 Zoster Vaccines (1 of 2) 1991 RSV Immunization Adult Patients (1 - 1-dose 75+ series) 2016 Cholesterol Screening (Lipid Panel) 02/10/2022 Depression Screening 02/10/2022 Falls Risk Assessment 02/10/2022 Osteoporosis Screening (Bone Density Screening) 02/10/2022 Social Influencers of Health Screening 02/10/2022 COVID-19 Vaccine ( season) 2023 Influenza Vaccine (Season Ended) 2024 01/08/2022, 01/17/2021, 12/09/2019, Additional history exists HIB Vaccines Aged Out No longer eligi ble based on patient's age to complete this topic HPV Vaccines Aged Out No longer eligi ble based on patient's age to complete this topic Hepatitis A Vaccines Aged Out No long er eligible based on patient's age to complete this topic Hepatitis B Vaccines Aged Out No long er eligible based on patient's age to complete this topic IPV Vaccines Aged Out No longer eligi ble based on patient's age to complete this topic MMR Vaccines Aged Out No longer eligi ble based on patient's age to complete this topic Meningococcal ACWY Vaccine Aged Out N o longer eligible based on patient's age to complete this topic Meningococcal B Vaccine Aged Out No l onger eligible based on patient's age to complete this topic RSV Immunization Patients Under 20 months Aged Out No longer eligible based on patient's age to complete this topic Varicella Vaccines Aged Out No longer eligible based on patient's age to complete this topic Medical Devices Implanted Type Area Fish Conservationist Device Identifier Shelf Expiration Date Model / Serial / Lot Component Femoral Cruciate Retaining Beaded Lt Size 4 W\Vanda - [id number] Implanted:Qty: 1 on 08/31/2018 by Alek Hutton MD Left: Knee [employer] 06/23/2023 5517-F-401 / / [id number] Triathlon Tritanium Baseplate Size 4 - [id number] Implanted:Qty: 1 on 08/31/2018 by Alek Hutton MD Left: Knee [employer] 06/01/2023 5536-B-400 / / [id number] Component 9mm S 31mm Symmetric Tritanium Metal Ptlar - [id number] Implanted:Qty: 1 on 08/31/2018 by Alek Hutton MD Left: Knee [employer] 09/15/2022 5556-L-319 / / [id number] Insert Triathlon 4 9mm Cruciate Retaining X3 Tibial Knee - [id number] Implanted:Qty: 1 on 08/31/2018 by Alek Hutton MD Left: Knee [employer] 05/26/2022 5530-G-409 / / [id number] Component Femoral Cruciate Retaining Beaded Rt Size 4 W\Vanda - [id number] Implanted:Qty: 1 on 10/19/2018 by Alek Hutton MD Right: Knee [employer] 07/31/2023 5517-F-402 / / [id number] Triathlon Tritanium Baseplate Size 3 - [id number] Implanted:Qty: 1 on 10/19/2018 by Alek Hutton MD Right: Knee [employer] 08/22/2023 5536-B-300 / / [id number] Component 9mm S 31mm Symmetric Tritanium Metal Ptlar - [id number] Implanted:Qty: 1 on 10/19/2018 by Alek Hutton MD Right: Knee [employer] 05/18/2023 5556-L-319 / / [id number] Insert Triathlon 3 9mm Cruciate Retaining X3 Tibial Knee - [id number] Implanted:Qty: 1 on 10/19/2018 by Alek Hutton MD Right: Knee [employer] 07/14/2020 5530-G-309 / / [id number] Care Teams Boiler Riveter Relationship Specialty Start Date End Date Jaylyn Florentino MD PCP - General Internal Medicine 02/20/21
--- OUTSIDE RECORDS SUMMARY | 2024-07-12 11:10 | XMS_ITS | Clinical Summary ---
Author Organization [facility] Address [address] [place] [address] Care Team Providers Care Well Digger Name Role Phone Jaylyn Florentino MD Primary Care Provider [phone] Allergies Active Allergy Reactions Criticality Noted Date Comments [place]-Containing Compounds 08/02/2018 [place] BAND CAUSED REDNESS, ITCHING, BLEEDING. OTHER METAL JEWELRY NOT A PROBLEM Medications Medication Sig Dispensed Refills Start Date End Date Status [facility] (OSTEO BI-FLEX ADV TRIPLE ST PO) Take 2 tablets by mouth daily. 0 Active calcium citrate-vitamin D (CITRACAL+D) 315-200 MG-UNIT per tablet Take 1 tablet by mouth 2 (two) times a week. 0 Active Magnesium 400 MG CAPS Take 1 capsule by mouth 2 (two) times a week. 0 Active B Complex-C (SUPER B COMPLEX PO) Take 1 capsule by mouth 2 (two) times a week. 0 Active acetaminophen (TYLENOL EXTRA STRENGTH) 500 MG tablet Take 2 tablets (1,000 mg total) by mouth every 8 (eight) hours. 30 tablet 0 10/20/2018 Active Active Problems Problem Noted Date Diagnosed Date Primary osteoarthritis of right knee 10/19/2018 Osteoarthritis of right knee 10/18/2018 Primary osteoarthritis of left knee 08/31/2018 Degenerative arthritis of left knee 08/29/2018 Abnormal EKG 08/10/2018 Dyspnea on exertion 08/10/2018 Family History Medical History Relation Name Comments Asthma Brother 2 Coronary artery disease Father Stroke Father Arthritis Mother RHEUMATOID Early Sister 1 Arthritis Sister 2 SPINAL STENOSIS Asthma Sister 2 Relation Name Status Comments Brother 2 UNKNOWN Father (Age 81) UNKNOWN Mother (Age 89) CHF Sister 1 (Age 4) LEUKEMIA Sister 2 Alive Social History Tobacco Use Types Packs/Day Years Used Date Smoking Tobacco: Never Smokeless Tobacco: Never Alcohol Use Standard Drinks/Week Comments Yes 0 (1 standard drink = 0.6 oz pur e alcohol) 3 x yearly 1-2 drinks Sex and Gender Information Value Date Recorded Sex Assigned at Female 08/02/2018 4:40 PM EDT Gender Identity Female 08/02/2018 4:40 PM EDT Sexual Orientation Not on file Job Start Date Occupation Industry Not on file Not on file Not on file Last Filed Vital Signs Vital Sign Reading Time Taken Comments Blood Pressure 160/90 07/25/2020 4:23 PM EDT Pulse 94 07/25/2020 4:23 PM EDT Temperature 37.1 ??C (98.7 ??F) 10/20/2018 8:29 AM ED T Respiratory Rate 17 10/20/2018 8:29 AM EDT Oxygen Saturation 95% 10/20/2018 8:29 AM EDT Inhaled Oxygen Concentration - - Weight 81.9 kg (180 lb 9.6 oz) 07/25/2020 4:23 P M EDT Height 160 cm (5' 3 ) 07/25/2020 4:23 PM EDT Body Mass Index 31.99 07/25/2020 4:23 PM EDT Plan of Treatment Health Maintenance Due Date Last Done Comments COVID-19 Vaccine (#1) 1941 Depression Screening 1953 Preventative Health Evaluation 1959 DTap / Tdap / Td (1 - Tdap) 1960 Shingrix-Zoster Vaccine (1 o f 2) 1991 Fall Risk Assessment 2006 Osteoporosis Screening (DEXA Scan) 2006 Pneumococcal Vaccine (1 of 1 - PCV) 2006 RSV Adult > 60+ Yrs or (1 - 1-dose 75+ series) 2016 BMI Counseling 10/11/2019 10/10/2018, 08/09/2018 Influenza Vaccine (#1) 2023 Hepatitis B Vaccines Aged Out No long er eligible based on patient's age to complete this topic RSV Ped < 20 months Aged Out No longe r eligible based on patient's age to complete this topic Medical Devices Implanted Type Area Criminal Analyst Device Identifier Shelf Expiration Date Model / Serial / Lot Component Femoral Cruciate Retaining Beaded Lt Size 4 W\Vanda - [id number] - [id number] Implanted:Qty: 1 on 08/31/2018 by Moses Hutton MD at [facility] Left: Knee [employer] 06/23/2023 5517-F-401 / / [id number] Triathlon Tritanium Baseplate Size 4 - [id number] - [id number] Implanted:Qty: 1 on 08/31/2018 by Moses Hutton MD at [facility] Left: Knee [employer] 06/01/2023 5536-B-400 / / [id number] Component 9mm S 31mm Symmetric Tritanium Metal Ptlar - [id number] - [id number] Implanted:Qty: 1 on 08/31/2018 by Moses Hutton MD at [facility] Left: Knee [employer] 09/15/2022 5556-L-319 / / [id number] Insert Triathlon 4 9mm Cruciate Retaining X3 Tibial Knee - [id number] - [id number] Implanted:Qty: 1 on 08/31/2018 by Moses Hutton MD at [facility] Left: Knee [employer] 05/26/2022 5530-G-409 / / [id number] Component Femoral Cruciate Retaining Beaded Rt Size 4 W\Vanda - [id number] - [id number] Implanted:Qty: 1 on 10/19/2018 by Moses Hutton MD at [facility] Right: Knee [employer] 07/31/2023 5517-F-402 / / [id number] Triathlon Tritanium Baseplate Size 3 - [id number] - [id number] Implanted:Qty: 1 on 10/19/2018 by Moses Hutton MD at [facility] Right: Knee [employer] 08/22/2023 5536-B-300 / / [id number] Component 9mm S 31mm Symmetric Tritanium Metal Ptlar - [id number] - [id number] Implanted:Qty: 1 on 10/19/2018 by Moses Hutton MD at [facility] Right: Knee [employer] 05/18/2023 5556-L-319 / / [id number] Insert Triathlon 3 9mm Cruciate Retaining X3 Tibial Knee - [id number] - [id number] Implanted:Qty: 1 on 10/19/2018 by Moses Hutton MD at [facility] Right: Knee [employer] 07/14/2020 5530-G-309 / / [id number] Advance Directives For more information, please contact: [phone] Latest Code Status on File Code Status Date Activated Date Inactivated Comments Full Code 10/19/2018 11:20 AM 10/20/2018 9:42 PM This c ode status was ascertained in the following way: per living will or healthcare instructions . Code Status History Code Status Date Activated Date Inactivated Comments Full Code 10/19/2018 8:07 AM 10/19/2018 11:20 AM This c ode status was ascertained in the following way: discussion with patient . Full Code 08/31/2018 10:07 AM 09/01/2018 9:28 PM This code status was ascertained in the following way: discussion with patient . Full Code 08/31/2018 7:49 AM 08/31/2018 10:07 AM This code status was ascertained in the following way: discussion with patient . Care Teams Well Digger Relationship Specialty Start Date End Date Jaylyn Florentino MD [address] [place] [address] PCP - General Corporate Security Officer 07/25/20
[2024-07-12 11:13] LABS: MANUAL DIFF FLAG NO
[2024-07-12 11:21] LABS: Basophils Percent Auto 0.7 % (0-2); Eosinophils Absolute Auto 0.2 X10*3/uL (0.0-0.4); Eosinophils Percent Auto 2.5 % (0-4); Hematocrit 42.1 % (37.0-47.0); Hemoglobin 13.9 g/dl (12.0-16.0); Imm Gran Abs Auto 0.02 X10*3/uL (0.00-0.03); Imm Gran Pct Auto 0.3 % (0.0-0.4); Lymphocytes Absolute Auto 1.9 X10*3/uL (1.2-4.9); Lymphocytes Percent Auto 32.1 % (20-40); Mean Corpuscular Hemoglobin 31.1 pg (27.0-33.0); Mean Corpuscular Volume 94.2 fL (80.0-98.0); Mean Platelet Volume 10.9 fL (9.4-12.3); Monocytes Absolute Auto 0.5 X10*3/uL (0.1-1.2); Neutrophils Absolute Auto 3.3 x10*3/uL (2.0-8.3); Neutrophils Percent Auto 55.4 % (45-73); Platelet Count 207 X10*3/uL (160-400); Red Blood Count 4.47 X10*6/uL (4.20-5.50); Red Cell Distribution Width 13.2 % (11.0-16.0); White Blood Count 5.9 X10*3/uL (4.8-10.8)
[2024-07-12 11:46] LABS: Estimated Average Glucose 146 mg/dL; Hemoglobin A1C 183.8023 umol/L; Hemoglobin A1c % 6.7 % (<6.0); Total Hemoglobin (HGBA1C) 3727.7241 umol/L
[2024-07-12 12:12] LABS: Alanine Aminotransferase 24 U/L (0-31); Albumin Level 3.9 g/dL (3.5-5.0); Alkaline Phosphatase 55 U/L (39-117); Anion Gap 11 (12-20); Aspartate Amino Transferase 26 U/L (5-31); Bilirubin Total 0.7 mg/dL (0.0-1.0); Blood Urea Nitrogen 25 mg/dL (9-16); Calcium 9.5 mg/dL (8.4-10.2); Carbon Dioxide 30 mmol/L (22-29); Chloride 105 mmol/L (96-108); Cholesterol 169 mg/dL (<200); Estimated Glomerular Filt Rate > 60; Glucose Fasting 127 mg/dL (60-99); HDL Cholesterol 72 mg/dL (>40); LDL Cholesterol Calculated 81 mg/dL (<100); Potassium 4.4 mmol/L (3.3-5.1); Sodium 142 mmol/L (135-145); Total Protein 7.3 g/dL (6.5-8.0); Triglycerides 80 mg/dL (<150)
[2024-07-12 12:15] LABS: Vitamin D 25-OH Total 29.1 ng/mL (>30)
[2024-07-12 14:47] LABS: Creatinine Urine 123.12 mg/dL; Microalbum/Creatinine Ratio Ur 33.3 ug/mg cr (<30)
== END 2024-07-12 10:09 | disposition home or self-care (01) ==
LOC: HO.WFDLDS 10:08
PROVIDERS: Visit Provider Internal Medicine
DX: Z00.00 Encounter for general adult medical examination without abnormal findings (principal); E78.5 Hyperlipidemia, unspecified; I77.9 Disorder of arteries and arterioles, unspecified; E11.9 Type 2 diabetes mellitus without complications
CPT/HCPCS: 36415; 80053; 80061; 82043; 82306; 82570; 83036; 85025

== ENCOUNTER 2024-07-17 11:30 | Outpatient (AMB) | payer MEDICARE, OTHER, SELFPAY ==
[2024-07-17 11:48] VITALS: BP 134/78; PULSE 78; RESP 18; TEMP 36.7; O2SAT 97; BMI 30.6
--- NOTE | 2024-07-17 11:48 | MHC.PC.OV ---
Vital Signs 07/17/24 11:48 Height 5 ft 3 in Weight 173 lb BMI 30.6 BP 134/78 Blood Pressure Location Lt brachial Position Sitting Respiration 18 Pulse 78 Pulse Source Pulse Oximeter Temp 98.1 F Temp Source Oral Pulse Oximetry (%) 97 Oxygen Delivery Method Room Air Intake Visit Reasons: Annual PE/Overdue Intake Note: Pt is here today for PE. Allergies No Known Allergies Allergy (Verified 07/17/24 12:02) Medication List - Last Reconciled 07/17/24 by Jaylyn Florentino MD albuterol sulfate 90 mcg/actuation 2 puffs inhalation Q6H PRN ezetimibe 10 mg PO DAILY omeprazole 20 mg PO DAILY rosuvastatin 10 mg PO BEDTIME Tobacco use date assessed: 07/17/24 Fall risk assessment: No Falls in past year Last assessed Fall Risk: 07/17/24 Dental Screening Dental Screen Date: 07/17/24 Did you have a dental visit in the last 12 months?: Yes Did you have a dental problem in the last 6 months where you did not have access to dental care?: No Was dental information given to patient?: Patient has dentist HPI Annual PE/Overdue HPI Details Pt presents for PE. PFSH Medical History (Updated 07/17/24 @ 12:51 by Jaylyn Florentino MD) Hx of cataract Hyperlipidemia Carotid arterial disease Cholelithiasis Cough RUQ abdominal pain Urinary incontinence Type 2 diabetes mellitus Surgical History (Updated 07/17/24 @ 12:05 by Jackie Bunch [facility]) Hx of cholecystectomy S/P ILIR-BSO History of knee replacement Family History Father Diabetes Mother CHF (congestive heart failure) Maternal Grandfather Colon cancer Social History Housing: House Alcohol intake: current Alcohol intake frequency: holidays/special occasions only Patient Tobacco Use Status: Never used Tobacco e-Cigarette/Vaping Use: Never Used service: No Current occupational status: retired Cognitive needs: No Hearing needs: No Vision needs: Yes Questionnaire PHQ-9 Over the last 2 weeks, how often have you been bothered by any of the following problems? 1. Little interest or pleasure in doing things: not at all 2. Feeling down, depressed, or hopeless: not at all 3. Trouble falling or staying asleep, or sleeping too much: not at all 4. Feeling tired or having little energy: not at all 5. Poor appetite or overeating: not at all 6. Feeling bad about yourself - or that you are a failure or have let yourself or your family down: not at all 7. Trouble concentrating on things, such as reading the newspaper or watching television: not at all 8. Moving or speaking so slowly that other people could have noticed. Or the opposite - being so fidgety or restless that you have been moving around a lot more than usual: not at all 9. Thoughts that you would be better off or of hurting yourself in some way: not at all Total score: 0 Depression Screening Interpretation: Negative Depression Screening Done: Yes 53146 - PHQ-9 Billing: Yes Source: Developed by Drs. Ace Dobbs, Fatou Fernandez, Mejia Winter and colleagues, with an educational astrid from [email or web address]. Thrive Questionnaire Date Thrive assessed: 07/17/24 I am a: Patient What is your living situation today?: I have a steady place to live Within the past 12 months, did the food you bought not last and you didn't have the money to get more?: Never true Within the past 12 months, did you worry whether your food would run out before you got money to buy more?: Never true Do you have trouble paying for medicines?: No Do you have trouble getting transportation to medical appointments?: No Do you have trouble paying your heating and electricity bill?: No Do you have trouble taking care of your child, family member or friend?: No Do you have trouble with day-to-day activities such as bathing, preparing meals, shopping, managing finances, etc.?: No Are you currently unemployed and looking for a job?: No Are you interested in more education?: No THRIVE Score: 0 AUDIT C Alcohol Use Questionnaire (AUDIT-C) 1. How often do you have a drink containing alcohol?: Never 3. How often do you have six or more drinks on one occasion?: Never Total Score: 0 CASI-7 AMB Questionnaire CASI-7 Date CASI - 7 assessed: 07/17/24 Feeling nervous, anxious, or on edge: 0 = Not at all Not being able to stop or control worryin = Not at all Worrying too much about different things: 0 = Not at all Trouble relaxin = Not at all Being so restless that it is hard to sit still: 0 = Not at all Becoming easily annoyed or irritable: 0 = Not at all Feeling afraid as if something awful might happen: 0 = Not at all Total CASI-7 score (0-4 normal; 5-9 mild; 10-14 moderate; 15-21 severe): 0 Source: Developed by Drs. Ace Dobbs, Fatou Fernandez, Mejia Winter and colleagues, with an educational astrid from [email or web address]. CASI-7 Assessment Billing CASI-7 Assessment Tool: CASI-7 Assessment 30992 Review of Systems Const All systems reviewed & are unremarkable except as noted in HPI and below Eyes Reports no additional complaints ENT Reports no additional complaints Card Reports no additional complaints Resp Reports no additional complaints GI Reports no additional complaints Reports no additional complaints Physical exam (Primary Care) Vital Signs: Last Vital Signs Temp 98.1 F 07/17/24 11:48 Pulse 78 07/17/24 11:48 Resp 18 07/17/24 11:48 BP 134/78 07/17/24 11:48 Pulse Ox 97 07/17/24 11:48 Oxygen Delivery Method Room Air 07/17/24 11:48 BMI result Body Mass Index 30.6 Tobacco/Smoking Status: Tobacco use Status Tobacco use date assessed 07/17/24 07/17/24 12:06 Patient Tobacco Use Status Never used Tobacco 07/17/24 11:48 e-Cigarette/Vaping Use Never Used 07/17/24 11:48 PHQ-9: PHQ-9 Score PHQ-9: Total score 0 07/17/24 12:06 Depression Screening Interpretation: Negative Thrive Assessment: Date of Thrive Assessment Date Thrive assessed 07/17/24 07/17/24 12:06 Const General: no acute distress HENMT Head: Yes normal to inspection General nose exam: Normal external nose present Face and sinus: Yes normal facial exam Throat: Yes posterior oropharynx normal Eyes General: appearance normal, both eyes and all related structures Neck Neck: Yes no lymphadenopathy and Yes supple Resp Effort & Inspection: normal respiratory effort Auscultation: clear to auscultation bilaterally Cardio Rhythm: regular rhythm Heart sounds: S1 normal heart sound present and S2 normal heart sound present GI Inspection: Yes normal to inspection Palpation (GI): Soft to palpation Percussion: Yes normal to percussion Auscultation: normal bowel sounds Coding Level of Care Code Est Pt Prev Care >65y(09987) Diagnoses Dysplastic nevi D23.9 Type 2 diabetes mellitus E11.9 Hyperlipidemia E78.5 Vitamin D deficiency E55.9 Annual physical exam Z00.00 Additional Codes CASI-7 Assessment Billing - CASI-7 Assessment Tool: CASI-7 Assessment 60012 ([id number]) PHQ-9 - 34891 - PHQ-9 Billing: Yes ([id number]) Assessment & Plan Assessment & Plan (1) Dysplastic nevi: Comment: behind R ear Code(s): D23.9 - Other benign neoplasm of skin, unspecified Category: Medical Plan: refer to Dermatology (2) Type 2 diabetes mellitus: Comment: diet controlled A1C 6.3 08/2021, A1C 6.7 07/06 Code(s): E11.9 - Type 2 diabetes mellitus without complications Category: Medical Plan: A1c is 6.7. ADA diet regular exercise weight loss discussed with the patient. Metformin ER 750 daily will be started. patient will follow-up in 4 months with a fasting labs before (3) Hyperlipidemia: Comment: Follows up with a automatic dry starch operator in [place] Code(s): E78.5 - Hyperlipidemia, unspecified Category: Medical Plan: Continue Crestor and Zetia (4) Vitamin D deficiency: Code(s): E55.9 - Vitamin D deficiency, unspecified Category: Medical Plan: Continue vitamin-D supplement (5) Annual physical exam: Code(s): Z00.00 - Encounter for general adult medical examination without abnormal findings Category: Medical Plan: Well-balanced diet regular physical activity discussed with the patient Orders: Orders Comprehensive [place]. Panel Fast 4 Months E11.9 - Type 2 diabetes mellitus without complications, E55.9 - Vitamin D deficiency, unspecified, E78.5 - Hyperlipidemia, unspecified Hemoglobin A1c 4 Months E11.9 - Type 2 diabetes mellitus without complications, E55.9 - Vitamin D deficiency, unspecified, E78.5 - Hyperlipidemia, unspecified Vitamin D 25-OH Total 4 Months E11.9 - Type 2 diabetes mellitus without complications, E55.9 - Vitamin D deficiency, unspecified, E78.5 - Hyperlipidemia, unspecified Lipid Panel 4 Months E78.5 - Hyperlipidemia, unspecified Referrals Dermatology Referral D23.9 - Other benign neoplasm of skin, unspecified Medications: New metformin ER 750 mg PO DAILY 90 tabs 1RF Refilled albuterol sulfate 90 mcg/actuation 2 puffs inhalation Q6H PRN 8.5 grams 2RF shortness of breath or wheezing Discontinued omeprazole Discontinued Reason: Doctor's Order 20 mg PO DAILY 90 caps 3RF
--- OUTSIDE RECORDS SUMMARY | 2024-07-17 13:16 | XMS_ITS | Clinical Summary ---
Author Organization [facility] Address [address] [place] [address] Care Team Providers Care Head Sawyer Automatic Name Role Phone Jaylyn Florentino MD Primary Care Provider [phone] Lawrence Echols MD Unavailable Allergies Active Allergy Reactions Criticality Noted Date Comments [place]-Containing Compounds Other (See Comments) 08/02/2018 [place] BAND [...] Description 09/28/2024 10:15 AM EDT Ancillary Procedure [facility] [place] [address] [address] Lawrence Echols MD [address] [place], [place] [id number] 12/18/2024 10:20 AM EDT Office Visit [facility] [place] [address] [address] Lawrence Echols MD [address] [place] [id number] Health Maintenance Due Date Last Done Comments [...] topic Insurance MEDICARE PART A & B [facility] Care Teams Head Sawyer Automatic Relationship Specialty Start Date End Date Jaylyn Florentino MD [address] [place] [address] PCP - General 12/09/20 Lawrence Echols MD [address] [place] [address] Primary Rubber Goods Inspector Tester Cardiovascular Disease 01/14/22
--- OUTSIDE RECORDS SUMMARY | 2024-07-17 13:16 | XMS_ITS | Encounter Summary ---
Author Organization [facility] Address [address] [place] [address] Care Team Providers Care Solar Panel Installation Supervisor Name Role Phone Jaylyn Florentino MD Primary Care Provider [phone] Lawrence Echols MD Unavailable Lawrence Echols MD Unavailable Reason for Visit * Reason Comments Medication Refill Encounter Details Date Type Department Care Team (Late st Contact Info) Description 08/06/[address] [address] Lawrence Echols MD [address] [place] [address] Medication Refill Social History Tobacco Use [...] Description 09/28/2024 10:15 AM EDT Ancillary Procedure [facility] [address] [phone] Lawrence Echols MD [address] [place] [id number] 12/18/2024 10:20 AM EDT Office Visit [facility] [address] [phone] Lawrence Echols MD [address] [place], [place] [phone] documented as of this encounter Visit Diagnoses Diagnosis Mixed hyperlipidemia Insulin resistance Other abnormal glucose documented in this encounter Care Teams Solar Panel Installation Supervisor Relationship Specialty Start Date End Date Jaylyn Florentino MD [address] [place] [address] PCP - General 12/09/20 Lawrence Echols MD [address] [place] [id number] Cardiovascular Disease 12/09/20 2 Lawrence Echols MD [address] [place] [id number] Primary Comic Illustrator Cardiovascular Disease 01/14/22 documented as of this encounter
--- OUTSIDE RECORDS SUMMARY | 2024-07-17 13:17 | XMS_ITS | Clinical Summary ---
Author Organization [facility] Address [address] [place] [id number] Care Team Providers Care Chisel Trimmer Name Role Phone Jaylyn Florentino MD Primary Care Provider [phone] Allergies Active Allergy Reactions Criticality Noted Date Comments [place]-Containing Compounds 08/02/2018 [place] BAND CAUSED REDNESS, ITCHING, BLEEDING. OTHER METAL JEWELRY NOT A PROBLEM Medications Medication Sig Dispensed Refills Start Date End Date Status [facility] Natural Products (OSTEO BI-FLEX ADV TRIPLE ST [...] this topic Medical Devices Implanted Type Area [employer]ocad Electrical Designer Device Identifier Shelf Expiration Date Model / Serial / Lot Component Femoral Cruciate Retaining Beaded Lt Size 4 W\Vanda - [id number] - [id number] Implanted:Qty: 1 on 08/31/2018 by Moses Hutton MD at [facility] Left: Knee [employer] 06/23/2023 5517-F-401 / / [id number] Triathlon Tritanium Baseplate Size 4 - [id number] - [id number] Implanted:Qty: 1 on 08/31/2018 by Moses Hutton MD at [facility] Left: Knee [employer] 06/01/2023 5536-B-400 / / [id number] Component 9mm S 31mm Symmetric Tritanium Metal Ptlar - [id number] - [id number] Implanted:Qty: 1 on 08/31/2018 by Moses Hutton MD at [facility] Left: Knee [employer] 09/15/2022 5556-L-319 / / [id number] Insert Triathlon 4 9mm Cruciate Retaining X3 Tibial Knee - [id number] - [id number] Implanted:Qty: 1 on 08/31/2018 by Moses Hutton MD at [facility] Left: Knee [employer] 05/26/2022 5530-G-409 / / [id number] Component Femoral Cruciate Retaining Beaded Rt Size 4 W\Vanda - [id number] - [id number] Implanted:Qty: 1 on 10/19/2018 by Moses Hutton MD at [facility] Right: Knee [employer] 07/31/2023 5517-F-402 / / [id number] Triathlon Tritanium Baseplate Size 3 - [id number] - [id number] Implanted:Qty: 1 on 10/19/2018 by Moses Hutton MD at [facility] Right: Knee [employer] 08/22/2023 5536-B-300 / / [id number] Component 9mm S 31mm Symmetric Tritanium Metal Ptlar - [id number] - [id number] Implanted:Qty: 1 on 10/19/2018 by Moses Hutton MD at [facility] Right: Knee [employer] 05/18/2023 5556-L-319 / / [id number] Insert Triathlon 3 9mm Cruciate Retaining X3 Tibial Knee - [id number] - [id number] Implanted:Qty: 1 on 10/19/2018 by Moses Hutton MD at [facility] Right: Knee [employer] 07/14/2020 5530-G-309 / / [id number] Advance Directives For more information, please contact: [phone] Latest Code Status on File Code Status [...] way: discussion with patient . Care Teams Chisel Trimmer Relationship Specialty Start Date End Date Jaylyn Florentino MD [address] [place] [address] PCP - General Motor Vehicle Or Caravan Salesperson 07/25/20
== END 2024-07-17 12:49 | disposition home or self-care (01) ==
LOC: HO.HMCC 11:30
PROVIDERS: PCP Internal Medicine; Visit Provider Internal Medicine
DX: Z00.00 Encounter for general adult medical examination without abnormal findings (principal); D23.9 Other benign neoplasm of skin, unspecified; E11.69 Type 2 diabetes mellitus with other specified complication; E78.5 Hyperlipidemia, unspecified; E55.9 Vitamin D deficiency, unspecified

== ENCOUNTER → 2024-07-17 11:30 | Outpatient (BNVA) | payer MEDICARE, OTHER, SELFPAY | PROVIDERS: PCP Internal Medicine; Visit Provider Internal Medicine | DX: Z00.00 Encounter for general adult medical examination without abnormal findings (principal); D23.9 Other benign neoplasm of skin, unspecified; E11.9 Type 2 diabetes mellitus without complications; E78.5 Hyperlipidemia, unspecified; E55.9 Vitamin D deficiency, unspecified | CPT/HCPCS: 96127; 99397 ==

== ENCOUNTER 2025-02-22 09:02 | Outpatient (REF) | payer MEDICARE, OTHER, SELFPAY ==
[2025-02-22 11:39] LABS: Alanine Aminotransferase 23 U/L (0-31); Albumin Level 4.0 g/dL (3.5-5.0); Alkaline Phosphatase 64 U/L (39-117); Anion Gap 13 (12-20); Aspartate Amino Transferase 22 U/L (5-31); Blood Urea Nitrogen 31 mg/dL (9-16); Calcium 9.5 mg/dL (8.4-10.2); Carbon Dioxide 28 mmol/L (22-29); Chloride 106 mmol/L (96-108); Cholesterol 153 mg/dL (<200); Estimated Glomerular Filt Rate > 60; HDL Cholesterol 63 mg/dL (>40); Potassium 4.6 mmol/L (3.3-5.1); Sodium 142 mmol/L (135-145); Total Protein 7.1 g/dL (6.5-8.0); Triglycerides 104 mg/dL (<150)
== END 2025-02-22 09:03 ==
LOC: HO.WFDLDS 09:02
PROVIDERS: Visit Provider Internal Medicine
DX: E11.9 Type 2 diabetes mellitus without complications (principal); E78.5 Hyperlipidemia, unspecified; E55.9 Vitamin D deficiency, unspecified
CPT/HCPCS: 36415; 80053; 80061; 82306; 83036

== ENCOUNTER 2025-03-01 11:29 | Outpatient (AMB) | payer MEDICARE, OTHER, SELFPAY ==
--- NOTE | 2025-03-01 11:31 | MHC.PC.OV ---
Vital Signs 03/01/25 11:34 Height 5 ft 3 in Weight 173 lb BMI 30.6 BP 130/80 Blood Pressure Location Lt brachial Position Sitting Respiration 17 Pulse 93 Pulse Source Pulse Oximeter Pulse Oximetry (%) 97 Oxygen Delivery Method Room Air Intake Visit Reasons: Followup meds Intake Note: Pt is here today for a follow up visit. Allergies metformin Adverse Reaction (Intermediate, Verified 03/01/25 11:56) Constipation Medication List - Last Reconciled 03/01/25 by Jaylyn Florentino MD albuterol sulfate 90 mcg/actuation 2 puffs inhalation Q6H PRN ezetimibe 10 mg PO DAILY metformin ER 750 mg PO DAILY rosuvastatin 10 mg PO BEDTIME Tobacco use date assessed: 03/01/25 Fall risk assessment: No Falls in past year Last assessed Fall Risk: 03/01/25 Dental Screening Dental Screen Date: 07/17/24 HPI Followup meds HPI Details Patient presents for a follow-up I 2 diabetes hyperlipidemia. Patient has been taking metformin for 2-1/2 months and reports initially side effects including constipation bloating abdominal fullness but they have been improving. Patient complains of chronic irritation of the left posterior throat getting worse over last few weeks. She denies postnasal drip or difficulty swallowing but reports occasionally dryness, irritation and dry cough. Patient noticed nonhealing lesion on the right middle finger for 2 months occasionally becoming more irritated and bleeding. [facility] Medical History (Updated 03/01/25 @ 12:18 by Jaylyn Florentino MD) Hx of cataract Hyperlipidemia Carotid arterial disease Cholelithiasis Cough RUQ abdominal pain Urinary incontinence Type 2 diabetes mellitus Surgical History Hx of cholecystectomy S/P ILIR-BSO History of knee replacement Family History Father Diabetes Mother CHF (congestive heart failure) Maternal Grandfather Colon cancer Social History Housing: House Alcohol intake: current Alcohol intake frequency: holidays/special occasions only Patient Tobacco Use Status: Never used Tobacco e-Cigarette/Vaping Use: Never Used service: No Current occupational status: retired Cognitive needs: No Hearing needs: No Vision needs: Yes Questionnaire PHQ-9 Over the last 2 weeks, how often have you been bothered by any of the following problems? 1. Little interest or pleasure in doing things: not at all 2. Feeling down, depressed, or hopeless: not at all 3. Trouble falling or staying asleep, or sleeping too much: not at all 4. Feeling tired or having little energy: not at all 5. Poor appetite or overeating: not at all 6. Feeling bad about yourself - or that you are a failure or have let yourself or your family down: not at all 7. Trouble concentrating on things, such as reading the newspaper or watching television: not at all 8. Moving or speaking so slowly that other people could have noticed. Or the opposite - being so fidgety or restless that you have been moving around a lot more than usual: not at all 9. Thoughts that you would be better off or of hurting yourself in some way: not at all Total score: 0 Depression Screening Interpretation: Negative Depression Screening Done: Yes Source: Developed by Drs. Ace Dobbs, Fatou Fernandez, Mejia Winter and colleagues, with an educational astrid from [employer]. Thrive Questionnaire Date Thrive assessed: 07/17/24 I am a: Patient What is your living situation today?: I have a steady place to live Within the past 12 months, did the food you bought not last and you didn't have the money to get more?: Never true Within the past 12 months, did you worry whether your food would run out before you got money to buy more?: Never true Do you have trouble paying for medicines?: No Do you have trouble getting transportation to medical appointments?: No Do you have trouble paying your heating and electricity bill?: No Do you have trouble taking care of your child, family member or friend?: No Do you have trouble with day-to-day activities such as bathing, preparing meals, shopping, managing finances, etc.?: No Are you currently unemployed and looking for a job?: No Are you interested in more education?: No Please select the resources that you would like help with: None Currently or been in a relationship where the following occur: No concerns reported THRIVE Score: 0 AUDIT C Alcohol Use Questionnaire (AUDIT-C) 1. How often do you have a drink containing alcohol?: Monthly or less 2. How many drinks containing alcohol do you have on a typical day when you are drinking?: 1 or 2 3. How often do you have six or more drinks on one occasion?: Never Total Score: 1 CASI-7 AMB Questionnaire CASI-7 Date CASI - 7 assessed: 07/17/24 Feeling nervous, anxious, or on edge: 0 = Not at all Not being able to stop or control worryin = Not at all Worrying too much about different things: 0 = Not at all Trouble relaxin = Not at all Being so restless that it is hard to sit still: 0 = Not at all Becoming easily annoyed or irritable: 0 = Not at all Feeling afraid as if something awful might happen: 0 = Not at all Total CASI-7 score (0-4 normal; 5-9 mild; 10-14 moderate; 15-21 severe): 0 Source: Developed by Drs. Ace Dobbs, Fatou Fernandez, Mejia Winter and colleagues, with an educational astrid from [employer]. Review of Systems Const All systems reviewed & are unremarkable except as noted in HPI and below Card Reports no additional complaints Resp Reports no additional complaints GI Reports no additional complaints Reports no additional complaints Physical exam (Primary Care) Vital Signs: Last Vital Signs Pulse 93 03/01/25 11:34 Resp 17 03/01/25 11:34 BP 130/80 03/01/25 11:34 Pulse Ox 97 03/01/25 11:34 Oxygen Delivery Method Room Air 03/01/25 11:34 BMI result Body Mass Index 30.6 Tobacco/Smoking Status: Tobacco use Status Tobacco use date assessed 03/01/25 03/01/25 11:42 Patient Tobacco Use Status Never used Tobacco 03/01/25 11:31 e-Cigarette/Vaping Use Never Used 03/01/25 11:31 PHQ-9: PHQ-9 Score PHQ-9: Total score 0 03/01/25 11:42 Depression Screening Interpretation: Negative Thrive Assessment: Date of Thrive Assessment Date Thrive assessed 07/17/24 03/01/25 11:31 Currently or been in a relationship where the following occur: No concerns reported Const General: no acute distress HENMT Head: Yes normal to inspection Ears: TM's normal bilaterally General nose exam: No nasal discharge present Face and sinus: No sinus tenderness Mouth: tongue normal and moist mucous membranes Throat: Yes posterior oropharynx normal Eyes General: appearance normal, both eyes and all related structures Resp Effort & Inspection: normal respiratory effort Auscultation: clear to auscultation bilaterally Cardio Rhythm: regular rhythm Heart sounds: S1 normal heart sound present and S2 normal heart sound present GI Inspection: Yes normal to inspection Palpation (GI): Soft to palpation Percussion: Yes normal to percussion Auscultation: normal bowel sounds Coding Level of Care Code Est Pt Level 4 (25537) Diagnoses Abnormal skin growth D49.2 Type 2 diabetes mellitus E11.9 Chronic sore throat J31.2 Hyperlipidemia E78.5 Assessment & Plan Assessment & Plan (1) Abnormal skin growth: Comment: Right middle finger Code(s): D49.2 - Neoplasm of unspecified behavior of bone, soft tissue, and skin Category: Medical Plan: Referred to dermatology (2) Type 2 diabetes mellitus: Comment: diet controlled A1C 6.3 08/2021, A1C 6.7 07/06 Code(s): E11.9 - Type 2 diabetes mellitus without complications Category: Medical Plan: A1c is 6.5, ADA diet increase physical activity discussed with the patient. She decided to continue taking metformin for 6 months. Patient will follow-up in 6 months with a fasting labs before (3) Chronic sore throat: Code(s): J31.2 - Chronic pharyngitis Category: Medical Plan: Referred to ENT for evaluation (4) Hyperlipidemia: Comment: Follows up with a chart reader in [place] Code(s): E78.5 - Hyperlipidemia, unspecified Category: Medical Plan: Continue statin and Zetia Orders: Orders Hemoglobin A1c 6 Months E11.9 - Type 2 diabetes mellitus without complications TSH reflex Free T4 6 Months E11.9 - Type 2 diabetes mellitus without complications Comprehensive [place]. Panel Fast 6 Months E11.9 - Type 2 diabetes mellitus without complications Lipid Panel 6 Months E11.9 - Type 2 diabetes mellitus without complications Complete Blood Count Auto Diff 6 Months E11.9 - Type 2 diabetes mellitus without complications Microalbumin, Random (w Creat) 6 Months E11.9 - Type 2 diabetes mellitus without complications Referrals Ear/Nose/Throat Referral J31.2 - Chronic pharyngitis Dermatology Referral D49.2 - Neoplasm of unspecified behavior of bone, soft tissue, and skin Medications: Refilled metformin ER 750 mg PO DAILY 90 tabs 3RF Discontinued metformin ER Discontinued Reason: Doctor's Order 750 mg PO DAILY 90 tabs 1RF
[2025-03-01 11:34] VITALS: BP 130/80; PULSE 93; RESP 17; O2SAT 97; BMI 30.6
--- OUTSIDE RECORDS SUMMARY | 2025-03-01 15:08 | XMS_ITS | Clinical Summary ---
Author Organization [facility] Prior to 08/12/24 Address [address] [place] [address] Care Team Providers Care Cane Splicer Name Role Phone Jaylyn Florentino MD Primary Care Provider Allergies Active Allergy Reactions Criticality Noted Date Comments [place]-Containing Compounds 08/02/2018 [place] BAND CAUSED REDNESS, ITCHING, BLEEDING. OTHER METAL JEWELRY NOT A PROBLEM Medications Medication Sig Dispensed Refills Start Date End Date Status [facility] Natural Products (OSTEO BI-FLEX ADV TRIPLE ST [...] 94 07/25/2020 4:23 PM EDT Temperature 37.1 C (98.7 F) 10/20/2018 8:29 AM EDT Respiratory Rate 17 10/20/2018 8:29 AM EDT [...] Counseling 10/11/2019 10/10/2018, 08/09/2018 Influenza Vaccine (#1) 2024 Hepatitis B Vaccines Aged Out No long er eligible based on patient's age to complete this topic RSV Ped < 20 months Aged Out No longe r eligible based on patient's age to complete this topic Medical Devices Implanted Type Area Support Team Member Device Identifier Shelf Expiration Date Model / Serial / Lot Component Femoral Cruciate Retaining Beaded Lt Size 4 W\Vanda - [id number] - [id number] Implanted:Qty: 1 on 08/31/2018 by [place] [facility] Left: Knee [employer] 06/23/2023 5517-F-401 / / [id number] Triathlon Tritanium Baseplate Size 4 - [id number] - [id number] Implanted:Qty: 1 on 08/31/2018 by Moses H[place] [facility] Left: Knee [employer] 06/01/2023 5536-B-400 / / [id number] Component 9mm S 31mm Symmetric Tritanium Metal Ptlar - 373400 - [id number] Implanted:Qty: 1 on 08/31/2018 by Moses H[place] [facility] Left: Knee [employer] 09/15/2022 5556-L-319 / / [id number] Insert Triathlon 4 9mm Cruciate Retaining X3 Tibial Knee - [id number] - [id number] Implanted:Qty: 1 on 08/31/2018 by Moses H[place] [facility] Left: Knee [employer] 05/26/2022 5530-G-409 / / [id number] Component Femoral Cruciate Retaining Beaded Rt Size 4 W\Vanda - [id number] - [id number] Implanted:Qty: 1 on 10/19/2018 by Moses [place] [facility] Right: Knee [employer] 07/31/2023 5517-F-402 / / [id number] Triathlon Tritanium Baseplate Size 3 - [id number] - [id number] Implanted:Qty: 1 on 10/19/2018 by Moses H[place] [facility] Right: Knee [employer] 08/22/2023 5536-B-300 / / [id number] Component 9mm S 31mm Symmetric Tritanium Metal Ptlar - 813957 - [id number] Implanted:Qty: 1 on 10/19/2018 by Moses Hutton MD [place] [facility] Right: Knee [employer] 05/18/2023 5556-L-319 / / [id number] Insert Triathlon 3 9mm Cruciate Retaining X3 Tibial Knee - [id number] - [id number] Implanted:Qty: 1 on 10/19/2018 by Moses Hutton MD [place] [facility] Right: Knee [employer] 07/14/2020 5530-G-309 / / [id number] Advance Directives For more information, please contact: [phone] Latest Code Status on File Code Status [...] way: discussion with patient . Care Teams Cane Splicer Relationship Specialty Start Date End Date Jaylyn Florentino MD [address] [place] [address] PCP - General Tactical Air Control Party 07/25/20
--- OUTSIDE RECORDS SUMMARY | 2025-03-01 15:08 | XMS_ITS | Encounter Summary ---
Author Organization [facility] Address [address] [place] [address] Care Team Providers Care Housing Liaison Name Role Phone Jaylyn Florentino MD Primary Care Provider [phone] Lawrence Echols MD Unavailable Encounter Details Date Type Department Care Team (Late st Contact Info) Description 01/11/2025 Scanned Document [facility] [address] [address] Cardiology, Scan Social History Tobacco Use Types Packs/Day Years [...] Care Team (Late st Contact Info) Description 12/24/2025 1:00 PM EDT Office Visit [facility] [address] [address] Lawrence Echols MD [address] [place] [phone] documented as of this encounter Visit Diagnoses Not on filedocumented in this encounter Care Teams Housing Liaison Relationship Specialty Start Date End Date Jaylyn Florentino MD [address] [place] [address] PCP - General 12/09/20 Lawrence Echols MD [address] [place] [address] Primary Quality Worker Cardiovascular Disease 01/14/22 documented as of this encounter
--- OUTSIDE RECORDS SUMMARY | 2025-03-01 15:08 | XMS_ITS ---
Author Name [facility] Unknown Results Test Name/Text Value Interpretation Date Range Source Vitamin D2 SerPl-mCnc <4 12/08/2024 [facility] Vitamin D3 SerPl-mCnc 33.0 ng/mL 12/08/2024 [facility] 25(OH)D3+25(OH)D2 SerPl-mCnc 33.0 ng/mL 12/08/2024 30 - 100 [facility] C peptide SerPl-mCnc 1.98 ng/mL 12/08/2024 0.68 - 2.16 [facility] Insulin intact Ser LC/MS/MS-aCnc 8.0 uIU/mL 12/08/2024 - [facility] Insulin resist score Ser Calc.CardioIQ 34.0 12/08/2024 - [facility] LDL SerPl Qn 220.0 Angstrom Below low normal 12/08/2024 222. 9 - [facility] LDL SerPl-sCnc 945.0 nmol/L 12/08/2024 - 1138 Q [facility] HDLc SerPl-mCnc 73.0 mg/dL 12/08/2024 49 - [facility] EST HDL alpha 3 Ser-sCnc 190.0 nmol/L 12/08/2024 - 215 [facility] LDLc real size Pat SerPl A 12/08/2024 - [facility] Lp-PLA2 SerPl-cCnc 77.0 nmol/min/mL 12/08/2024 - 1 24 [facility] CRP SerPl HS-mCnc 0.5 mg/L 12/08/2024 - 1 Q [facility] HLD.large SerPl-sCnc 6612.0 nmol/L Below low normal 12/08/2024 6729 - [facility] LPa SerPl-sCnc 85.0 nmol/L Above high normal 12/08/2024 - 75 [facility] NonHDLc SerPl-mCnc 73.0 mg/dL (calc) 12/08/2024 - 130 [facility] LDL Small SerPl-sCnc 163.0 nmol/L Above high normal 12/08/2024 - 142 [facility] LDLc SerPl Calc-mCnc 57.0 mg/dL (calc) 12/08/2024 - 100 [facility] Trigl SerPl-mCnc 78.0 mg/dL 12/08/2024 - 150 [facility] Apo B SerPl-mCnc 69.0 mg/dL 12/08/2024 - 90 Q [facility] Cholest/HDLc SerPl 2.0 calc 12/08/2024 - 5 [facility] Cholest SerPl-mCnc 146.0 mg/dL 12/08/2024 - 200 [facility] EPA/Fatty acids.C14-C22 MFr Bld 0.4 % by wt 12/08/2024 0.2 - 2.3 [facility] AA/Fatty acids.C14-C22 MFr Bld 13.1 % by wt 12/08/2024 8.6 - 15.6 [facility] DHA/Fatty acids.C14-C22 MFr Bld 1.6 % by wt 12/08/2024 1.4 - 5.1 [facility] DPA/Fatty acids.C14-C22 MFr Bld 0.9 % by wt 12/08/2024 0.8 - 1.8 [facility] EPA+DPA+DHA/FA.C14- C22 risk Bld Imp 2.9 % by wt Below low normal 12/08/2024 5.4 - [facility] AA+Linoleate/Fatty acids.C14-C22 MFr Bld 41.1 % by wt 12/08/2024 [facility] EPA+DPA+DHA/Fatty acids.C14-C22 MFr Bld 2.9 % by wt 12/08/2024 [facility] AA/EPA Bld 34.9 12/08/2024 3.7 - 40.7 [facility] Linoleate/Fatty acids.C14-C22 MFr Bld 24.7 % by wt 12/08/2024 18.6 - 29.5 [facility] w6 FA/w3 FA Bld 14.4 12/08/2024 3.7 - 14.4 QU EST HbA1c MFr Bld 6.9 % Above high normal 12/08/2024 - 5.7 [facility] History of Medication Use Medication Directions Dispensed Refills Start Date End Date Stat metFORMIN (GLUCOPHAGE-XR) 750 MG 24 hr tablet Take 1 tablet (750 mg total) by mouth every morning with breakfast. 10/31/2024 active ezetimibe (ZeTIA) 10 MG tablet Take 1 tablet (10 mg total) by mouth daily. 11/11/2022 11/01/2023 active rosuvastatin (CRESTOR) 10 MG tablet TAKE 1 TABLET(10 MG) BY MOUTH DAILY 08/03/2022 07/28/2023 aborted albuterol (PROVENTIL HFA; VENTOLIN HFA) 108 (90 Base) MCG/ACT inhaler as needed. 10/31/2021 12/17/2023 active rosuvastatin (CRESTOR) 10 MG tablet TAKE 1 TABLET(10 MG) BY MOUTH DAILY 08/06/2021 07/31/2024 active OMEprazole (PriLOSEC) 20 MG capsule Take 1 capsule (20 mg total) by mouth daily as needed. 02/12/2021 active Magnesium 400 MG Cap Take 1 capsule by mouth 2 (two) times a week. 12/17/2023 active acetaminophen (TYLENOL) 500 MG tablet Take 2 tablets (1,000 mg total) by mouth 3 times daily (every 8 hours). 11/11/2022 aborted calcium citrate-vitamin D (CITRACAL+D) 315-200 MG-UNIT per tablet Take 1 tablet by mouth 2 (two) times a week. active Misc Natural Products (OSTEO BI-FLEX ADV TRIPLE ST PO) Take 2 tablets by mouth daily. active Allergies Allergen Reaction Severity Comment Documented Date Source Statu s METLAKATLA-CONTAINI NG COMPOUNDS OTHER (SEE COMMENTS) [place] BAND CAUSED REDNESS, ITCHING, BLEEDING. OTHER METAL JEWELRY NOT A PROBLEM 08/02/2018 [facility] active Problems Problem Status Onset Date Problem Type Date of Resoluti on Source Primary osteoarthritis of right knee active 2021-04-02 [facility] Abnormal EKG active 2018-08-10 [facility] Primary osteoarthritis of left knee active 2021-04-02 [facility] Pain in the coccyx active 2010-10-07 [facility] Right flank pain active 2013-01-30 Problem[facility] Pure hypercholesterolemia active 2015-06-14 [facility] Dyspnea on exertion active 2018-08-10 ProblemAct [facility] Encounters Encounter Type Encounter Reason Primary Diagnosis Location Date Ambulatory Mixed hyperlipidemia Mixed hyperlipidemia [facility] 10/10/202 5 [facility]ulatory [facility] 5 Ambulatory Mixed hyperlipidemia Mixed hyperlipidemia [facility] 4 Amb[facility] 3 Ambulatory Abnormal electrocardiogram (ECG) (EKG) Abnormal electrocardiogram (ECG) (EKG) [facility] Amb[facility] Abnormal electrocardiogram (ECG) (EKG) Abnormal electrocardiogram (ECG) (EKG) [facility] 2 Ambulatory Abnormal electrocardiogram (ECG) (EKG) [facility] 2 Care Team Organization Name Specialty Phone Email Start Date End [facility] [place] [employer] JAYLYN FLORENTINO Primary Care 01/11/2025 [facility] [employer] Jaylyn Florentino Primary Care 09/28/2024 01/22/20 25 [facility] JAYLYN FLORENTINO Primary Care 01/16/2022 01/22/20 25 [facility] Jaylyn Florentino Primary Care 04/03/2021 01/17/20 22
--- OUTSIDE RECORDS SUMMARY | 2025-03-01 15:08 | XMS_ITS | Clinical Summary ---
Author Organization [facility] ity Address [address] [place] [address] Care Team Providers Care Gynecologist Name Role Phone Jaylyn Florentino MD Primary Care Provider [phone] Surgical History Surgery Date Site/Laterality Comments HYSTERECTOMY PROCEDURE: HISTORICAL HYSTERECTOMY TOTAL KNEE ARTHROPLASTY PROCEDURE: OR ARTHRP KNE CONDYLE&PLATU MEDIAL&LAT COMPARTMENTS CHOLECYSTECTOMY PROCEDURE: OR LAPAROSCOPY SURG CHOLECYSTECTOMY Family History Medical History [...] on file Sexual Orientation Not on file Last Filed Vital Signs [...] Patients (1 - 1-dose 75+ series) 2016 Depression Screening 03/15/2024 COVID-19 Vaccine (2024- season) 2024 Influenza Vaccine (#1) 2024 2, 01/17/2021, 12/09/2019, Additional history exists HIB Vaccines [...] this topic Medical Devices Implanted Type Area Tub Mender Device Identifier Shelf Expiration Date Model / Serial / Lot Component Femoral Cruciate Retaining Beaded Lt Size 4 W\Vanda - [id number] Implanted:Qty: 1 on 08/31/2018 by Alek Hutton MD Left: Knee [employer] 06/23/2023 5517-F-401 / / [id number] Triathlon Tritanium Baseplate Size 4 - [id number] Implanted:Qty: 1 on 08/31/2018 by Alek Hutton MD Left: Knee [employer] 06/01/2023 5536-B-400 / / [id number] Component 9mm S 31mm Symmetric Tritanium Metal Ptlar - [id number] Implanted:Qty: 1 on 08/31/2018 by Alek Hutton MD Left: Knee [employer] 09/15/2022 5556-L-319 / / [id number] Insert Triathlon 4 9mm Cruciate Retaining X3 Tibial Knee - [id number] Implanted:Qty: 1 on 08/31/2018 by Alek Hutton MD Left: Knee [employer] 05/26/2022 5530-G-409 / / [id number] Component Femoral Cruciate Retaining Beaded Rt Size 4 W[employer] - [id number] Implanted:Qty: 1 on 10/19/2018 by Alek Hutton MD Right: Knee [employer] 07/31/2023 5517-F-402 / / [id number] Triathlon Tritanium Baseplate Size 3 - [id number] Implanted:Qty: 1 on 10/19/2018 by Alek Hutton MD Right: Knee [employer] 08/22/2023 5536-B-300 / / [id number] Component 9mm S 31mm Symmetric Tritanium Metal Ptlar - [id number] Implanted:Qty: 1 on 10/19/2018 by Alek Hutton MD Right: Knee [employer] 05/18/2023 5556-L-319 / / [id number] Insert Triathlon 3 9mm Cruciate Retaining X3 Tibial Knee - [id number] Implanted:Qty: 1 on 10/19/2018 by Alek Hutton MD Right: Knee [employer] 07/14/2020 5530-G-309 / / [id number] Care Teams Gynecologist Relationship Specialty Start Date End Date Jaylyn Florentino MD PCP - General Internal Medicine 02/20/21
--- OUTSIDE RECORDS SUMMARY | 2025-03-01 15:08 | XMS_ITS | Clinical Summary ---
Author Organization [facility] Address [address] [place] [address] Care Team Providers Care Dozer Operator Name Role Phone Jaylyn Florentino MD Primary Care Provider [phone] Lawrence Echols MD Unavailable Allergies Active Allergy Reactions Criticality Noted Date Comments [place]-Containing Compounds Other (See Comments) 08/02/2018 WEDDING BAND [...] by mouth daily as needed. 1 Active rosuvastatin (CRESTOR) 10 MG tabletIndications:M ixed hyperlipidemia,Insu jarod resistance TAKE 1 TABLET(10 MG) BY MOUTH DAILY 90 tablet 3 5 Active ezetimibe (ZeTIA) 10 MG tabletIndications:M ixed hyperlipidemia,Bibi riosclerotic cardiovascular disease (ASCVD) TAKE 1 TABLET(10 MG) BY MOUTH DAILY 90 tablet 3 5 Active metFORMIN (GLUCOPHAGE-XR) 750 MG 24 hr tablet Take 1 tablet (750 mg total) by mouth every morning with breakfast. 5 Active Active Problems Problem Noted Date Diagnosed Date Primary osteoarthritis of left knee 04/02/2021 Primary osteoarthritis of right knee 04/02/2021 Osteoarthritis of right knee 10/18/2018 Degenerative arthritis of left knee 08/29/2018 Abnormal EKG 08/10/2018 Dyspnea on exertion 08/10/2018 Pure hypercholesterolemia 06/14/2015 Right flank pain 01/30/2013 Overview (04/02/2021): Flank Pain Right Pain in the coccyx 10/07/2010 Overview (04/02/2021): Coccydynia Encounters Date Type Department Care Team Description 01/11/2025 Scanned Document [place] [id number] Cardiology, Scan 12/22/2024 2:00 PM EDT Office Visit [place] [phone] Lawrence Echols MD Mixed hyperlipidemia (Primary Dx); Arteriosclerotic cardiovascular disease (ASCVD); Blood glucose abnormal; Vitamin D deficiency from Last 3 Months Family History Medical History Relation Name Comments [...] Sign Reading Time Taken Comments Blood Pressure 172/90 12/22/2024 1:47 PM EDT Pulse 92 12/22/2024 1:47 PM EDT Temperature - - Respiratory Rate - - Oxygen Saturation 95% 12/22/2024 1:47 PM EDT Inhaled Oxygen Concentration - - Weight 80.6 kg (177 lb 12.8 oz) 12/22/2024 1:47 PM EDT Height 154.9 cm (5' 1 ) 12/22/2024 1:47 PM EDT Body Mass Index 33.6 12/22/2024 1:47 PM EDT Plan of Treatment Upcoming Encounters Date Type Department Care Team (Late st Contact Info) Description 12/24/2025 1:00 PM EDT Office Visit [facility] [address] [phone] Lawrence Echols MD [address] [place] [id number] Health Maintenance Due Date Last Done Comments Advance Care Planning 1940 DTaP/Tdap/Td Vaccines (1 - Tdap) 1960 Pneumococcal Vaccines 50+ (1 of 1 - PCV) 1991 Zoster (Shingles) Vaccine (1 of 2) 1991 DXA Bone Density (Females,Ag es 65 and older) 2006 RSV Vaccine 50 years and old er and Patients (1 - 1-dose 75+ series) 2016 Influenza Vaccine 10/13/2024 01/30/2013 COVID-19 Vaccine ( - 2024-2 6 season) 2024 Hepatitis B Vaccines Aged Out No long er eligible based on patient's age to complete this topic Procedures Procedure Name Priority Date/Time Associated Diagnosis Comments LAB RESULT Routine 01/12/2025 9:14 AM EDT ECG 12-LEAD Routine 12/22/2024 1:35 PM EDT Mixed hyperlipidemia Arteriosclerotic cardiovascular disease (ASCVD) CARDIO IQ VITAMIN D, 25-HYDROXY Routine 12/01/2024 10:34 AM EDT Mixed hyperlipidemia Blood glucose abnormal Vitamin D deficiency OMEGACHECK Routine 12/01/2024 10:34 AM EDT Mixed hyperlipidemia Blood glucose abnormal CARDIO IQ INSULIN RESISTANCE PANEL WITH SCORE Routine 12/01/2024 10:34 AM EDT Mixed hyperlipidemia Blood glucose abnormal CARDIO IQ HEMOGLOBIN A1C Routine 12/01/2024 10:34 AM EDT Mixed hyperlipidemia Blood glucose abnormal CARDIO (IQ) ADVANCED LIPID PANEL AND INFLAMMATION PANEL Routine 12/01/2024 10:34 AM EDT Mixed hyperlipidemia Blood glucose abnormal from Last 3 Months Results * LAB RESULT (01/12/2025 9:14 AM EDT) us Scan Urgent Care HX AMB PROCEDURES Final Result * ECG 12 lead (12/22/2024 1:35 PM EDT) [facility] Ventricular rate 96 BPM EKG [facility] Atrial rate 96 BPM EKG [facility] P-R interval 158 ms EKG [facility] QRS duration 88 ms [facility] Q-T interval 360 ms [facility] QTC calculation (Bazett) 454 ms EKG [facility] P axis 32 degrees EKG [facility] R axis -38 degrees EKG [facility] T axis 33 degrees [facility] 12/22/2024 1:35 PM EDT Narrative EKG [facility] - 12/22/2024 2:00 PM EDT Normal sinus rhythm Left axis deviation Moderate voltage criteria for LVH, may be normal variant ( R in aVL , Elba product ) Septal infarct (cited on or before 03-Apr-2021) Abnormal ECG When compared with ECG of 17-Dec-2023 10:54, Questionable change in initial forces of Septal leads Confirmed by MD Echols Brett ([id number]) on 12/22/2024 2:00:13 PM Procedure Note Lawrence Echols MD - 12/22/2024 Normal sinus rhythm Left axis deviation Moderate voltage criteria for LVH, may be normal variant ( R in aVL ,Elba product ) Septal infarct (cited on or before 03-Apr-2021) Abnormal ECG When compared with ECG of 17-Dec-2023 10:54, Questionable change in initial forces of Septal leads Confirmed by MD Echols Brett ([id number]) on 12/22/2024 2:00:13 PM Lawrence Echols MD ECG ORDERABLES Final Result EKG [facility] * Cardio IQ?? Insulin Resistance Panel with Score (12/01/2024 10:34 AM EDT) Insulin, Intact 8 < OR = 16 uIU/mL [employer]/[facility], Comment: Insulin concentration can be converted to pmol/L by applying the conversion factor: 1 uIU/mL = 5.97 pmol/L For additional information, please refer to http://Bellybaloo.ATEME/faq/KRD149 (This link is being provided for informational/educational purposes only.) This test was developed and its analytical performance characteristics have been determined by [employer]. It has not been cleared or approved by the FDA. This assay has been validated pursuant to the CLIA regulations and is used for clinical purposes. C-Peptide 1.98 0.68 - 2.16 ng/mL [facility] [employer], Insulin Resistance Score 34 < OR = 66 [facility]/[facility], Comment: Insulin Sensitive < 33; Impaired Insulin Sensitivity 33-66; Insulin Resistant >66 A score below 33 is optimal. The insulin resistance score correlates with steady state glucose levels achieved during an insulin suppression test, a standard research test for insulin resistance. The score is based on insulin and C-peptide results (Lupe F, Bolivar D, Konrad HYDE, et al. Insulin resistance probability scores for apparently healthy individuals. J Endocr Soc. 2018;2(9):5214-7000). For additional information, please refer to http://Bellybaloo.ATEME/faq/ETI967 (This link is being provided for informational/educational purposes only.) This test was developed and its analytical performance characteristics have been determined by [employer]. It has not been cleared or approved by the FDA. This assay has been validated pursuant to the CLIA regulations and is used for clinical purposes. 12/01/2024 10:3 4 AM EDT 12/01/2024 10:34 AM EDT Narrative [facility] - 12/08/2024 2:47 PM EDT FASTING:YES FASTING: YES us Lawrence Echols MD LAB BLOOD ORDERABLES Final Resul t [facility] [employer] [facility], [address] [place] [address] * (ABNORMAL) Omegacheck (Laie-3, Laie-6) (12/01/2024 10:34 AM EDT) EPA+DPA+DHA 2.9(L) >5.4 % by wt [facility]. Comment: This test was developed and its analytical performance characteristics have been determined by [facility]. It has not been cleared or approved by the U.S. Food and Drug Administration. This assay has been validated pursuant to the CLIA regulations and is used for clinical purposes. Increasing blood levels of long-chain n-3 fatty acids are associated with a lower risk of sudden cardiac (1). Based on the top (75th percentile) and bottom (25th percentile) quartiles of the CHL reference population, the following relative risk categories were established for OmegaCheck: A cut-off of >=5.5% by wt defines a population at optimal relative risk, 3.8-5.4% by wt defines a population at moderate relative risk, and <=3.7% by wt defines a population at high relative risk of sudden cardiac . The totality of the scientific evidence demonstrates that when consumption of fish oils is limited to 3 g/day or less of EPA and DHA, there is no significant risk for increased bleeding time beyond the normal range. A daily dosage of 1 gram of EPA and DHA lowers the circulating triglycerides by about 7-10% within 2 to 3 weeks. (Reference: 1-Martinez louis al. [facility]. 2002; 346: 6407-8761). EPA/Arachidonic Acid Ratio 34.9 3.7 - 40.7 [facility] Laie 6/Laie 3 Ratio 14.4 3.7 - 14.4 [facility] Laie-3 Total 2.9 % by wt [facility] EPA 0.4 0.2 - 2.3 % by wt [facility] DPA 0.9 0.8 - 1.8 % by wt [employer] Inc[facility] DHA 1.6 1.4 - 5.1 % by wt [employer] [facility] Laie-6 Total 41.1 % by wt [employer] Inc[facility] Comment: [employer] measures a number of omega-6 fatty acids with AA and LA being the two most abundant forms reported. Arachidonic Acid 13.1 8.6 - 15.6 % by wt [employer] Inc[facility] Linoleic Acid 24.7 18.6 - 29.5 % by wt [employer] 12/01/2024 10:3 4 AM EDT 12/01/2024 10:34 AM EDT Narrative DEL - 12/08/2024 2:47 PM EDT FASTING:YES FASTING: YES us Lawrence Echols MD LAB BLOOD ORDERABLES Final Resul t DEL [employer] [address] [facility] [address] [place] [address] * (ABNORMAL) Cardio IQ?? Advanced Lipid Panel and Inflammation Panel (12/01/2024 10:34 AM EDT) [facility] Cholesterol, Total 146 <200 mg/dL [employer] Inc[facility] Cholesterol, HDL 73 >49 mg/dL [facility] Triglycerides 78 <150 mg/dL [facility] LDL Cholesterol 57 <100 mg/dL (calc) [facility] Comment: Desirable range <100 mg/dL for primary prevention; <70 mg/dL for patients with CHD or diabetic patients with >= 2 CHD risk factors. LDL-C is now calculated using the Bennett-Nicole calculation, which is a validated novel method providing better accuracy than the Friedewald equation in the estimation of LDL-C. Bennett SS et al. ONEL. 2013;310(19): 7100-7140 (http://education.Touch-Writer.[facility]/faq/LGU136) LDL-C is now calculated using the Bennett-Nicole calculation, which is a validated novel method providing better accuracy than the Friedewald equation in the estimation of LDL-C. Bennett SS et al. ONEL. 2013;310(19): 0738-2855 (http://education.Touch-Writer.[facility]/faq/XGU176) Cholesterol/HDL Ratio 2.0 <5.0 calc [facility] Non HDL Chol. (LDL+VLDL) 73 <130 mg/dL (calc) [facility] Comment: For patients with diabetes plus 1 major ASCVD risk factor, treating to a non-HDL-C goal of <100 mg/dL (LDL-C of <70 mg/dL) is considered a therapeutic option. For patients with diabetes plus 1 major ASCVD risk factor, treating to a non-HDL-C goal of <100 mg/dL (LDL-C of <70 mg/dL) is considered a therapeutic option. LDL Particle Number 945 <1,138 nmol/L [facility] Comment: Relative Risk: Optimal <1138; Moderate 1258-0681; High >1409. Male and Female Reference Range: 1016 to 2185 nmol/L. LDL Small 163(H) <142 nmol/L [facility] Comment: Relative Risk: Optimal <142; Moderate 142-219; High >219. Male Reference Range: 123 to 441 nmol/L; Female Reference Range: 115 to 386 nmol/L. LDL Medium 190 <215 nmol/L [facility]. Comment: Relative Risk: Optimal <215; Moderate 215-301; High >301. Male Reference Range: 167 to 485 nmol/L; Female Reference Range: 121 to 397 nmol/L. HDL Large 6,612(L) >6,729 nmol/L [facility] Comment: Relative Risk: Optimal >6729; Moderate 1628-3937; High <5353. Male Reference Range: 4334 to [address] nmol/L; Female Reference Range: 5038 to [address] nmol/L. LDL Pattern A A Pattern [facility] Comment: Relative Risk: Optimal Pattern A; High Pattern B. Reference Range: Pattern A. LDL Peak Size 220.0(L) >222.9 Angstrom [facility]. Comment: This test was developed and its analytical performance characteristics have been determined by [facility]. It has not been cleared or approved by the U.S. Food and Drug Administration. This assay has been validated pursuant to the CLIA regulations and is used for clinical purposes. Relative Risk: Optimal >222.9; Moderate 222.9-217.4; High <217.4. Male and Female Reference Range: 216 to 234.3 Angstrom. Adult cardiovascular event risk category cut points (optimal, moderate, high) are based on an adult U.S. reference population plus two large cohort study populations. Association between lipoprotein subfractions and cardiovascular events is based on Radha et al. ATVB.2009;29:1975. For additional information, please refer to http://education.Touch-Writer.[facility]/faq/XUZ493 (This link is being provided for informational/educational purposes only.) Apolipoprotein B 69 <90 mg/dL [facility]. Comment: Reference Range <90 Risk Category: Optimal <90 Moderate 90-129 High > or = 130 A desirable treatment target may be <80 mg/dL or lower depending on the risk category of the patient including patients on lipid lowering therapies, patients with ASCVD, diabetes with >1 risk factors, Stage 3 or greater CKD with albuminuria, or heterozygous familial hypercholesterolemia. ApoB relative risk category cut points are based on AACE/LEESA and ACC/AHA recommendations (Caity SM, et al. 2019. doi:10.1016/j.jacc.2018.11.002; Isaiah Y, et al. 2020. doi:10.3401/FD-0348-1840). Lipoprotein (a) 85(H) <75 nmol/L [facility] Inc[facility] [facility]. Comment: Risk: Optimal <75 nmol/L; Moderate 75-125 nmol/L; High >125 nmol/L. Cardiovascular event risk category cut points (optimal, moderate, high) are based on Kris Dang [facility] 2017;69:692-711. C-Reactive Protein (High Sens) 0.5 <1.0 mg/L [facility] Inc[facility]. Comment: Reference Range: Optimal <1.0 mg/L, according to Sabina PS et al. Endocr Pract.2017;23(Suppl 2):1-87. The AHA/CDC Guidelines recommend hs-CRP ranges for identifying Relative Cardiovascular Risk in patients ages >17 years: <1.0 mg/L Lower Relative Cardiovascular Risk; 1.0-3.0 mg/L Average Relative Cardiovascular Risk; 3.1-10.0 mg/L Higher Relative Cardiovascular Risk. If result is between 3.1 and 10.0 mg/L, consider retesting in 1-2 weeks to exclude a benign transient elevation secondary to infection or inflammation from the baseline CRP value. Persistent elevations of >10.0 mg/L upon retesting may be associated with infection and inflammation. The AHA/CDC recommendations are based on Domínguez TA, Karla GA, Naun RW, et al. Markers of inflammation and cardiovascular disease: application to clinical and public health practice: A statement for healthcare professionals from the Centers for Disease Control and Prevention and the [employer]. Circulation 2003; 107(3): 499-511. For ages >17 Years: hs-CRP mg/L Risk According to AHA/CDC Guidelines <1.0 Lower relative cardiovascular risk. 1.0-3.0 Average relative cardiovascular risk. 3.1-10.0 Higher relative cardiovascular risk. Consider retesting in 1 to 2 weeks to exclude a benign transient elevation in the baseline CRP value secondary to infection or inflammation. >10.0 Persistent elevation, upon retesting, may be associated with infection and inflammation. Catrachita TA, Karla GA, Naun RW, et al. Markers of inflammation and cardiovascular disease: application to clinical and public health practice: A statement for healthcare professionals from the Centers for Disease Control and Prevention and the [employer]. Circulation 2003; 107(3): 499-511. LP PLA2 Activity 77 <124 nmol/min/mL [employer] [facility]. Comment: Relative Risk: Optimal <=123 nmol/min/mL; High >123 nmol/min/mL. This test was developed and its analytical performance characteristics have been determined by [employer]. It has not been cleared or approved by the FDA. This assay has been validated pursuant to the CLIA regulations and is used for clinical purposes. See Note 1 Note 1 This test was developed and its analytical performance characteristics have been determined by [employer]. It has not been cleared or approved by the FDA. This assay has been validated pursuant to the CLIA regulations and is used for clinical purposes. 12/01/2024 10:3 4 AM EDT 12/01/2024 10:34 AM EDT [facility] - 12/08/2024 2:47 PM EDT FASTING:YES FASTING: YES us Lawrence Echols MD LAB BLOOD ORDERABLES Final Resul t DEL [employer] [address] [facility], [address] [place] [address] * (ABNORMAL) Cardio IQ?? Hemoglobin A1C (12/01/2024 10:34 AM EDT) Hemoglobin A1C 6.9(H) <5.7 % [employer]Lois sorensen [facility]. Comment: For someone without known diabetes, a hemoglobin A1c value of 6.5% or greater indicates that they may have diabetes, and this should be confirmed with a follow-up test. For someone with known diabetes, a value <7% indicates that their diabetes is well controlled and a value greater than or equal to 7% indicates suboptimal control. A1c targets should be individualized based on duration of diabetes, age, comorbid conditions, and other considerations. Currently, no consensus exists for use of hemoglobin A1c for diagnosis of diabetes for children. This test was performed on the Anita carline c503 platform. Effective 05/18/2023, a change in test platforms from the Myers Pool Player to the Anita carline c503 may have shifted HbA1c results compared to historical results. Based on laboratory validation testing conducted at [employer], the Anita platform relative to the Myers platform had an average increase in HbA1c value of <=0.3%. This difference is within accepted variability established by the National Glycohemoglobin Standardization Program. Note that not all individuals will have had a shift in their results and direct comparisons between historical and current results for testing conducted on different platforms is not recommended. 12/01/2024 10:3 4 AM EDT 12/01/2024 10:34 AM EDT [facility] - 12/08/2024 2:47 PM EDT FASTING:YES FASTING: YES us Lawrence Echols MD LAB BLOOD ORDERABLES Final Resul t [facility] [address] [place] [address] [address] [place] [address] * Cardio IQ?? Vitamin D, 25-Hydroxy (12/01/2024 10:34 AM EDT) [facility] Vitamin D, 25-Hydroxy, Total 33 30 - 100 ng/mL [facility] Comment: Vitamin D, 25-Hydroxy reports concentrations of two common forms, 25-OHD2 and 25-OHD3. 25-OHD3 indicates both endogenous production and supplementation. 25-OHD2 is an indicator of exogenous sources such as diet or supplementation. Therapy is based on measurement of Total 25-OHD, with levels <20 ng/mL indicative of Vitamin D deficiency, while levels between 20 ng/mL and 30 ng/mL suggest insufficiency. Optimal levels are > or = 30 ng/mL. For additional information, please refer to http://education.ATEME/faq/DBC876 (This link is being provided for informational/ educational purposes only.) Vitamin D, 25-Hydroxy, D3 33 ng/mL [facility] Comment: This test was developed and its analytical performance characteristics have been determined by [employer] [facility] [employer] [place], [place]. It has not been cleared or approved by the U.S. Food and Drug Administration. This assay has been validated pursuant to the CLIA regulations and is used for clinical purposes. Vitmain D, 25-Hydroxy, D2 <4 ng/mL [facility] Comment: This test was developed and its analytical performance characteristics have been determined by [employer] [place], [place]. It has not been cleared or approved by the U.S. Food and Drug Administration. This assay has been validated pursuant to the CLIA regulations and is used for clinical purposes. 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
== END 2025-03-01 12:07 | disposition home or self-care (01) ==
LOC: HO.HMCC 11:30
PROVIDERS: PCP Internal Medicine; Visit Provider Internal Medicine
DX: D49.2 Neoplasm of unspecified behavior of bone, soft tissue, and skin (principal); E11.9 Type 2 diabetes mellitus without complications; J31.2 Chronic pharyngitis; E78.5 Hyperlipidemia, unspecified

== ENCOUNTER → 2025-03-01 11:29 | Outpatient (BNVA) | payer MEDICARE, OTHER, SELFPAY | PROVIDERS: PCP Internal Medicine; Visit Provider Internal Medicine | DX: E11.9 Type 2 diabetes mellitus without complications (principal); J31.2 Chronic pharyngitis; E78.5 Hyperlipidemia, unspecified; D49.2 Neoplasm of unspecified behavior of bone, soft tissue, and skin; Z79.899 Other long term (current) drug therapy | CPT/HCPCS: 99212 ==